=== PATIENT | male | born 1970 | race Caucasian/White ===

== ENCOUNTER 2017-04-16 11:49 | Emergency (ER) | payer BC ==
[2017-04-16 12:05] VITALS: O2SAT 98
--- NOTE | 2017-04-16 12:16 | ERPHSYRPT ---
- History of Present Illness Time Seen by Provider: 04/16/17 12:11 Source: patient Exam Limitations: no limitations Patient Subjective Stated Complaint: states hit a wall with his right fist after being frustrated because he had to put his dog down today. Triage Nursing Assessment: right hand swollen, red, tender. is able to move fingers but is tender Physician History: The patient is a 46-year-old right-handed male who was upset and frustrated after his elderly dog this morning, striking a wall with his right fist, and causing pain to his fist. He has mild swelling and pain in the fist. Occurred: just prior to arrival Method of Injury: direct blow Quality: constant, sharpness Severity of Pain-Max: moderate Severity of Pain-Current: moderate Extremities Pain Location: hand: right Modifying Factors: Improves With: nothing Associated Symptoms: none Allergies/Adverse Reactions: No Known Drug Allergies Allergy (Unverified 04/16/17 12:05) Home Medications: No Reportable Medications [No Reported Medications] 04/16/17 [History] Hx Tetanus, Diphtheria Vaccination/Date Given: No Hx Influenza Vaccination/Date Given: No Hx Pneumococcal Vaccination/Date Given: No Immunizations Up to Date: No - Review of Systems Constitutional: No Fever, No Chills Eyes: No Symptoms Ears, Nose, & Throat: No Symptoms Respiratory: No Cough, No Dyspnea Cardiac: No Chest Pain, No Edema, No Syncope Abdominal/Gastrointestinal: No Abdominal Pain, No Nausea, No Vomiting, No Diarrhea Genitourinary Symptoms: No Dysuria Musculoskeletal: Injury Skin: No Rash Neurological: No Dizziness, No Focal Weakness, No Sensory Changes Psychological: No Symptoms Endocrine: No Symptoms Hematologic/Lymphatic: No Symptoms Immunological/Allergic: No Symptoms All Other Systems: Reviewed and Negative - Past Medical History Pertinent Past Medical History: Yes GI Medical History: Crohns Disease - Past Surgical History Past Surgical History: Yes Gastrointestinal: Colon Resection Musculoskeletal: Orthopedic Surgery Other Surgical History: left rotater cuff - Social History Smoking Status: Never smoker Exposure to second hand smoke: No Drug Use: none Patient Lives Alone: No - Nursing Vital Signs Nursing Vital Signs: Initial Vital Signs Temperature 98.6 F 04/16/17 11:54 Pulse Rate 118 H 04/16/17 11:54 Respiratory Rate 16 04/16/17 11:54 Blood Pressure 151/102 04/16/17 11:54 O2 Sat by Pulse Oximetry 98 04/16/17 11:54 Pain Scale Pain Intensity 8 - Physical Exam General Appearance: alert Eyes, Ears, Nose, Throat Exam: moist mucous membranes Neck Exam: non-tender, supple Cardiovascular/Respiratory Exam: chest non-tender, normal breath sounds, regular rate/rhythm, no respiratory distress Abdominal Exam: non-tender, No guarding Back Exam: normal inspection, No vertebral tenderness Shoulder Exam: normal inspection Elbow/Forearm Exam: normal inspection Wrist Exam: normal inspection Hand Exam: ecchymosis, soft tissue tenderness, swelling Neuro/Tendon Exam: normal sensation, normal motor functions Mental Status Exam: alert Skin Exam: normal color, warm, dry SpO2 Interpretation: normal SpO2: 98 Oxygen Delivery: Room Air - Radiology Exams Right Hand X-ray Interpretation: Interpreted by me, Negative, No Fracture Ordered Tests: Active Orders 24 hr Category Date Time Status HAND (MINIMUM 3 VIEWS) Stat Exams 04/16/17 12:18 Taken Medication Summary Discontinued Medications Generic Name Dose Route Start Last Admin Trade Name Lonnieq PRN Reason Stop Dose Admin Ketorolac Tromethamine 60 mg 04/16/17 12:18 04/16/17 12:46 Toradol 30 Mg Injection IM 04/16/17 12:19 60 mg STAT ONE Administration Ketorolac Tromethamine Confirm 04/16/17 12:44 Toradol 30 Mg Injection Administered 04/16/17 12:45 Dose 60 mg .ROUTE .STK-MED ONE - Departure Time of Disposition: 12:58 Departure Disposition: Home Clinical Impression: Contusion of right hand Condition: Stable Critical Care Time: No Referrals: KARLI GUERIN [Primary Care Provider] - Additional Instructions: You have a contusion of your right hand. There are no broken bones. You were given Toradol 60 mg by IM in the ER. Continue to take Tylenol and ibuprofen as needed. Apply ice for 10-15 minutes to the hand 3 times a day for 2 days. Follow-up as needed.
[2017-04-16] MEDS ORDERED: TORAdol 30 mg Injection IM ONE (12:18)
[2017-04-16] MEDS ORDERED: TORAdol 30 mg Injection ONE (12:44)
[2017-04-16 12:48] VITALS: BP 146/98; PULSE 110
--- NOTE | 2017-04-16 20:57 | XRAY ---
Indication: Pain following injury. Comparison: None 3 views of the right hand demonstrate mild posterior MCP soft tissue swelling. No other bony, articular, or soft tissue abnormalities.
== END 2017-04-16 13:04 | disposition home or self-care (01) ==
LOC: ED 11:49
DX: S60.221A Contusion of right hand, initial encounter (principal); W22.8XXA Striking against or struck by other objects, initial encounter
CPT/HCPCS: 73130; 96372; 99283; 99284; J1885

== ENCOUNTER 2018-07-13 07:27 | Emergency (ER) | payer BC ==
[2018-07-13] MEDS ORDERED: Sodium Chloride 0.9% 1000 ML 1,000 ML ONE ×2 (07:51→09:56)
--- NOTE | 2018-07-13 08:00 | ERPHSYRPT ---
- History of Present Illness Time Seen by Provider: 07/13/18 07:45 Source: patient Exam Limitations: no limitations Patient Subjective Stated Complaint: Woke and and was dizzy, N&V, Triage Nursing Assessment: Pt walked into the ER with an unstable gait, dizzy, tachycardic, headache, PERRL, recently diagnosed diabetic, no difficulties with strength, pulses normal Physician History: 47 y/o white male newly dx with diabetes. began metformin 2 weeks ago. bs this am 386. sx of dizziness and n/v. denies cp, abd pain. Timing/Duration: today Severity: mild Character of Deficits: other (dizziness, n/v) Deficits: no difficulties Baseline/Normal Cognition: alert oriented x 3 Current Cognition: alert oriented x 3 Baseline Gait: walks w/o assistance Associated Symptoms: nausea, vomiting, weakness, No slurred speech, No chest pain, No headache Allergies/Adverse Reactions: No Known Drug Allergies Allergy (Verified 07/13/18 07:41) Home Medications: Magnesium 250 mg PO DAILY 07/13/18 [History] Metformin HCl 500 mg [Glucophage 500 MG] 500 mg PO BID 07/13/18 [History] Hx Tetanus, Diphtheria Vaccination/Date Given: No Hx Influenza Vaccination/Date Given: No Hx Pneumococcal Vaccination/Date Given: No - Review of Systems Constitutional: Weakness Eyes: No Symptoms Ears, Nose, & Throat: No Symptoms Respiratory: No Symptoms Cardiac: No Symptoms Abdominal/Gastrointestinal: Nausea, Vomiting Genitourinary Symptoms: No Symptoms Musculoskeletal: No Symptoms Skin: No Symptoms Neurological: Dizziness Psychological: No Symptoms Endocrine: No Symptoms Hematologic/Lymphatic: No Symptoms Immunological/Allergic: No Symptoms All Other Systems: Reviewed and Negative - Past Medical History Pertinent Past Medical History: Yes Neurological History: No Pertinent History ENT History: No Pertinent History Cardiac History: No Pertinent History Respiratory History: No Pertinent History Endocrine Medical History: Diabetes Type II Musculoskeletal History: No Pertinent History GI Medical History: Crohns Disease History: No Pertinent History Psycho-Social History: No Pertinent History Male Reproductive Disorders: No Pertinent History - Past Surgical History Past Surgical History: Yes Neuro Surgical History: No Pertinent History Cardiac: No Pertinent History Respiratory: No Pertinent History Gastrointestinal: Colon Resection Genitourinary: No Pertinent History Musculoskeletal: Orthopedic Surgery Male Surgical History: No Pertinent History Other Surgical History: left rotater cuff - Social History Smoking Status: Never smoker Exposure to second hand smoke: No Drug Use: none Patient Lives Alone: Yes - Nursing Vital Signs Nursing Vital Signs: Initial Vital Signs Temperature 98.4 F 07/13/18 07:31 Pulse Rate 115 H 07/13/18 07:31 Blood Pressure 135/89 07/13/18 07:31 O2 Sat by Pulse Oximetry 100 07/13/18 07:31 Pain Scale Pain Intensity 0 - Samuel Coma Scale Best Eye Response ([place]): (4) open spontaneously Best Verbal Response ([place]): (5) oriented Best Motor Response ([place]): (6) obeys commands [place] Total: 15 - Physical Exam General Appearance: alert, anxiety Ears, Nose, Throat Exam: normal ENT inspection, moist mucous membranes Neck Exam: normal inspection, non-tender, supple, full range of motion Respiratory: normal breath sounds, lungs clear, airway intact, No chest tenderness, No respiratory distress, No accessory muscle use, No rhonchi, No wheezing, No stridor Cardiovascular: regular rate/rhythm, normal heart sounds, normal peripheral pulses Gastrointestinal: soft, normal bowel sounds, No tenderness, No guarding Rectal Exam: not done Back Exam: normal inspection, normal range of motion, No CVA tenderness, No vertebral tenderness Extremity Exam: normal inspection, normal range of motion, pelvis stable Mental Status: alert, oriented x 3, cooperative operations team leader Exam: normal hearing, normal speech, PERRL Coordination/Gait: normal finger to nose, normal gait, normal cerebellar function Motor/Sensory: no motor deficit, no sensory deficit, no pronator drift Skin Exam: normal color, warm, dry SpO2 Interpretation: normal SpO2: 100 O2 Delivery: Room Air - Course Nursing assessment & vital signs reviewed: Yes EKG Interpreted by Me: RATE ([id number]), Sinus Rhythm, Sinus Tach, NORMAL AXIS, NORMAL INTERVALS, NORMAL QRS, Other (no comparison ekg) Ordered Tests: Active Orders 24 hr Category Date Time Status Inspector Electromechanical STAT Care 07/13/18 08:03 Active EKG-ER Only STAT Care 07/13/18 08:02 Active IV Insertion STAT Care 07/13/18 08:02 Active Orthostatic Vital Signs STAT Care 07/13/18 08:05 Active Pulse Oximetry (ED) STAT Care 07/13/18 08:02 Active HEAD WITHOUT CONTRAST [CT] Stat Exams 07/13/18 08:04 Completed CBC W DIFF Stat Lab 07/13/18 08:00 Completed CMP Stat Lab 07/13/18 08:00 Completed UA W/RFX UR CULTURE Stat Lab 07/13/18 09:30 Completed Medication Summary Discontinued Medications Generic Name Dose Route Start Last Admin Trade Name Joselin PRN Reason Stop Dose Admin Sodium Chloride Confirm 07/13/18 07:51 Sodium Chloride 0.9% 1000 Ml Administered 07/13/18 07:52 Dose 1,000 mls @ ud .ROUTE .STK-MED ONE Sodium Chloride 1,000 mls @ 999 mls/hr 07/13/18 08:02 07/13/18 09:22 Sodium Chloride 0.9% 1000 Ml IV 07/13/18 09:02 Infused .Q1H1M STA Infusion Sodium Chloride 1,000 mls @ 999 mls/hr 07/13/18 08:07 07/13/18 11:06 Sodium Chloride 0.9% 1000 Ml IV 07/13/18 09:07 Infused .Q1H1M STA Infusion Sodium Chloride Confirm 07/13/18 09:56 Sodium Chloride 0.9% 1000 Ml Administered 07/13/18 09:57 Dose 1,000 mls @ ud .ROUTE .STK-MED ONE Insulin Human Regular 5 unit 07/13/18 08:02 07/13/18 08:14 Novolin R IV 07/13/18 08:03 5 unit STAT ONE Administration Insulin Human Regular Confirm 07/13/18 08:11 Novolin R Administered 07/13/18 08:12 Dose 5 unit .ROUTE .STK-MED ONE Ondansetron HCl 4 mg 07/13/18 08:02 07/13/18 08:15 Zofran 4 Mg/2 Ml Vial IV 07/13/18 08:03 4 mg STAT ONE Administration Ondansetron HCl Confirm 07/13/18 08:10 Zofran 4 Mg/2 Ml Vial Administered 07/13/18 08:11 Dose 4 mg .ROUTE .STK-MED ONE Lab/Rad Data: Laboratory Result Diagrams 07/13/18 08:00 07/13/18 08:00 Laboratory Results 07/13/18 07/13/18 07/13/18 Range/Units 09:30 08:00 08:00 WBC 10.2 (4.0-10.5) K/mm3 RBC 5.19 (4.1-5.6) M/mm3 Hgb 15.7 (12.5-18.0) gm/dl Hct 45.4 (42-50) % MCV 87.5 (78-100) fl MCH 30.3 (26-32) pg MCHC 34.6 (32-36) g/dl RDW 12.2 (11.5-14.0) % Plt Count 301 (150-450) K/mm3 MPV 11.4 H (6-9.5) fl Gran % 66.8 H (36.0-66.0) % Eos # (Auto) 0.21 (0-0.5) Absolute Lymphs (auto) 2.43 (1.0-4.6) Absolute Monos (auto) 0.71 (0.0-1.3) Lymphocytes % 23.8 L (24.0-44.0) % Monocytes % 6.9 (0.0-12.0) % Eosinophils % 2.1 (0.00-5.0) % Basophils % 0.4 (0.0-0.4) % Absolute Granulocytes 6.84 (1.4-6.9) Basophils # 0.04 (0-0.4) Sodium 136 L (137-145) mmol/L Potassium 4.4 (3.5-5.1) mmol/L Chloride 94 L (98-107) mmol/L Carbon Dioxide 27 (22-30) mmol/L Anion Gap 20.0 H (5-15) MEQ/L BUN 22 H (9-20) mg/dL Creatinine 0.83 (0.66-1.25) mg/dL Estimated GFR > 60.0 ML/MIN Glucose 379 H (74-106) mg/dL Calcium 10.0 (8.4-10.2) mg/dL Total Bilirubin 0.80 (0.2-1.3) mg/dL AST 30 (17-59) U/L ALT 33 (0-50) U/L Alkaline Phosphatase 152 H (38-126) U/L Serum Total Protein 8.3 H (6.3-8.2) g/dL Albumin 4.8 (3.5-5.0) g/dL Urine Color YELLOW (YELLOW) Urine Appearance CLEAR (CLEAR) Urine pH 5.0 (5-6) Ur Specific [place] 1.035 (1.005-1.025) Urine Protein NEGATIVE (Negative) Urine Ketones TRACE (NEGATIVE) Urine Blood NEGATIVE (0-5) Derek/ul Urine Nitrite NEGATIVE (NEGATIVE) Urine Bilirubin NEGATIVE (NEGATIVE) Urine Urobilinogen NEGATIVE (0-1) mg/dL Ur Leukocyte Esterase NEGATIVE (NEGATIVE) Urine WBC (Auto) NONE (0-5) /HPF Urine RBC (Auto) NONE (0-2) /HPF U Epithel Cells (Auto) NONE (FEW) /HPF Urine Bacteria (Auto) NONE (NEGATIVE) /HPF Urine Mucus (Auto) SLIGHT (NEGATIVE) /HPF Urine Culture Reflexed NO (NO) Urine Glucose >=500 (NEGATIVE) mg/dL - Progress Progress: improved, re-examined Progress Note: 07/13/18 09:03 pt states he is feeling better. ct head-no acute process; left sphenoid sinus soft tissue mass 07/13/18 11:12 feeling much better. bs 229 Counseled pt/family regarding: lab results, diagnosis, need for follow-up, rad results - Departure Departure Disposition: Home Clinical Impression: Hyperglycemia, Mild dehydration, Mass of left sphenoid sinus Condition: Stable Critical Care Time: No Referrals: KARLI GUERIN [ACTIVE STAFF] - Additional Instructions: drink plenty of fluids. monitor your blood glucose as directed. follow up with primary care physician regarding sphenoid sinus mass.
[2018-07-13] MEDS: Sodium Chloride 0.9% 1000 ML 1,000 ML IV STA ×2 (08:08→09:59)
[2018-07-13] MEDS ORDERED: Zofran 4 MG/2 ML VIAL ONE (08:10)
[2018-07-13] MEDS ORDERED: NovoLIN R ONE (08:11)
[2018-07-13] MEDS: NovoLIN R IV ONE (08:14)
[2018-07-13] MEDS: Zofran 4 MG/2 ML VIAL IV ONE (08:15)
[2018-07-13 08:33] LABS: BASOPHIL % 0.4 % (0.0-0.4); Basophil (Absolute #) 0.04 (0-0.4); Eosinophil % 2.1 % (0.00-5.0); Eosinophil (Absolute #) 0.21 (0-0.5); Granulocyte Absolute (ANC) 6.84 (1.4-6.9); Granulocytes % 66.8 % (36.0-66.0); Hematocrit 45.4 % (42-50); Hemoglobin 15.7 gm/dl (12.5-18.0); Lymphocyte (Absolute #) 2.43 (1.0-4.6); Lymphocytes % 23.8 % (24.0-44.0); Mean Cell Volume 87.5 fl (78-100); Mean Corpuscular Hemoglobin 30.3 pg (26-32); Mean Corpuscular Hgb Concent. 34.6 g/dl (32-36); Mean Platelet Volume 11.4 fl (6-9.5); Monocyte (Absolute #) 0.71 (0.0-1.3); Monocytes % 6.9 % (0.0-12.0); Platelet Count 301 K/mm3 (150-450); Red Blood Count 5.19 M/mm3 (4.1-5.6); Red Cell Distribution Width 12.2 % (11.5-14.0); White Blood Count 10.2 K/mm3 (4.0-10.5)
[2018-07-13 08:38] LABS: ALBUMIN 4.8 g/dL (3.5-5.0); ALKALINE PHOSPHATASE 152 U/L (38-126); BLOOD UREA NITROGEN 22 mg/dL (9-20); CHLORIDE 94 mmol/L (98-107); Carbon Dioxide 27 mmol/L (22-30); Creatinine 1 0.83 mg/dL (0.66-1.25); Glucose 379 mg/dL (74-106); Potassium 4.4 mmol/L (3.5-5.1); SGOT/AST 30 U/L (17-59); SGPT/ALT 33 U/L (0-50); SODIUM 136 mmol/L (137-145); Total Protein 8.3 g/dL (6.3-8.2)
--- NOTE | 2018-07-13 08:54 | XRAY ---
Indication: Dizziness following fall. Multiple contiguous axial images obtained through the head without contrast. Comparison: None Physiologic bilateral basal ganglia calcifications. No acute intracranial hemorrhage, abnormal extra-axial fluid collection, or mass effect. Fourth ventricle is midline without hydrocephalus. Jackson-white matter differentiation preserved. Bony calvarium intact. There is noncalcified soft tissue mass occupying the left sphenoid sinus with expansion measuring at least 2.7 x 2.4 x 1.9 cm. Partial differential includes polyp, retention cyst, mucocele, and paranasal sinus tumors. There is further extension and erosion of the clivus which would also include chordoma in the differential. Pituitary gland/sella turcica are unremarkable. Remaining paranasal sinuses and mastoid air cells are clear. Impression: 1. Left sphenoid sinus noncalcified soft tissue mass with expansion as detailed. Partial differential offered above. 2. Remaining CT head without contrast exam is negative. CT DI 69.79
[2018-07-13 09:42] LABS: Appearance CLEAR (CLEAR); Bilirubin NEGATIVE (NEGATIVE); Blood NEGATIVE Ery/ul (0-5); Glucose >=500 mg/dL (NEGATIVE); Ketones TRACE (NEGATIVE); Leukocyte Esterase NEGATIVE (NEGATIVE); Mucus SLIGHT /HPF (NEGATIVE); Nitrite NEGATIVE (NEGATIVE); Protein,Urine Dip NEGATIVE (Negative); Specific Gravity 1.035 (1.005-1.025); Urobilinogen NEGATIVE mg/dL (0-1)
[2018-07-13 11:08] VITALS: BP 112/74; PULSE 95
[2018-07-13 11:13] VITALS: O2SAT 100
== END 2018-07-13 11:17 | disposition home or self-care (01) ==
LOC: ED 07:27
DX: E11.65 Type 2 diabetes mellitus with hyperglycemia (principal); Z79.4 Long term (current) use of insulin; E86.0 Dehydration; J34.9 Unspecified disorder of nose and nasal sinuses
CPT/HCPCS: 36000; 36415; 70450; 80053; 81001; 82962; 85025; 93005; 93041; 96360; 96361; 96372; 96374; 99285; J2405; A9270-GY

== ENCOUNTER 2020-02-10 10:10 | Emergency (ER) | payer BC ==
[2020-02-10] MEDS ORDERED: Sodium Chloride 0.9% 1000 ML 1,000 ML IV STA (10:52)
--- NOTE | 2020-02-10 11:03 | ERPHSYRPT ---
- History of Present Illness Time Seen by Provider: 02/10/20 10:30 Historian: patient Exam Limitations: no limitations Patient Subjective Stated Complaint: pt here for vomiting and loose stools for a week now, he states he aslo has an abcess to back of left shoulder since 01/31/20 and is on antibotics for it, [facility] care gave him zofran concerned vomiting was from antibotics Triage Nursing Assessment: pt alert, resp easy, skikn w/d/p, abd soft, face mask in place,has abcess with bandaid palced that has some drainage Physician History: Patient is a 49-year-old male presents to our ED with complaints of periumbilical pain. Patient also complains of nausea vomiting and loose stools. Patient is currently on antibiotics for a back abscess. Patient went to [facility] prior to his arrival to our ED. Patient was told that the symptoms may be due to the antibiotics. Patient was given Zofran and sent to our ED for further evaluation. Periumbilical pain described as ache that is localized. No radiation. Pain is constant. No specific worsening or improving factors. No associated trauma. No fever. Emesis is nonbloody nonbilious. Patient voices no other complaints or concerns at this time. Timing/Duration: day(s) (3 days.) Activities at Onset: none Quality: aching Abdominal Pain Onset Location: periumbilical Pain Radiation: no radiation Severity of Pain-Max: moderate Severity of Pain-Current: mild Modifying Factors: Improves With: nothing Associated Symptoms: diarrhea, nausea, vomiting, No chest pain, No testicular pain Previous symptoms: no prior history Allergies/Adverse Reactions: No Known Drug Allergies Allergy (Verified 02/10/20 10:29) Home Medications: Magnesium 250 mg PO DAILY 07/13/18 [History] Metformin HCl 500 mg [Glucophage 500 MG] 500 mg PO BID 07/13/18 [History] Clindamycin HCl 600 mg BID 02/10/20 [History] Lisinopril 20 mg [Zestril 20 MG] 20 mg DAILY 02/10/20 [History] Hx Tetanus, Diphtheria Vaccination/Date Given: No Hx Influenza Vaccination/Date Given: Yes Hx Pneumococcal Vaccination/Date Given: Yes Immunizations Up to Date: Yes Travel Risk - International Travel Have you traveled outside of the country in past 3 weeks: No - Coronavirus Screening Are you exhibiting any of the following symptoms?: Yes Symptoms: Vomiting/Diarrhea, Headaches/Body Aches/Fatigue Close contact with a COVID-19 positive Pt in past 14-21 Days: No - Review of Systems Constitutional: No Symptoms, No Fever, No Chills Eyes: No Symptoms Ears, Nose, & Throat: No Symptoms Respiratory: No Symptoms, No Cough, No Dyspnea Cardiac: No Symptoms, No Chest Pain, No Edema, No Syncope Abdominal/Gastrointestinal: No Symptoms, No Abdominal Pain, No Nausea, No Vomiting, No Diarrhea Genitourinary Symptoms: No Symptoms, No Dysuria Musculoskeletal: No Symptoms, No Back Pain, No Neck Pain Skin: No Symptoms, No Rash Neurological: No Symptoms, No Dizziness, No Focal Weakness, No Sensory Changes Psychological: No Symptoms Endocrine: No Symptoms Hematologic/Lymphatic: No Symptoms Immunological/Allergic: No Symptoms All Other Systems: Reviewed and Negative - Past Medical History Pertinent Past Medical History: Yes Neurological History: No Pertinent History ENT History: No Pertinent History Cardiac History: No Pertinent History Respiratory History: No Pertinent History Endocrine Medical History: Diabetes Type II Musculoskeletal History: No Pertinent History GI Medical History: Crohns Disease History: No Pertinent History Psycho-Social History: No Pertinent History Male Reproductive Disorders: No Pertinent History - Past Surgical History Past Surgical History: Yes Neuro Surgical History: No Pertinent History Cardiac: No Pertinent History Respiratory: No Pertinent History Gastrointestinal: Appendectomy, Cholecystectomy, Colon Resection, Hernia Repair Genitourinary: No Pertinent History Musculoskeletal: Orthopedic Surgery Male Surgical History: No Pertinent History Other Surgical History: left rotater cuff,right leg - Social History Smoking Status: Never smoker Exposure to second hand smoke: No Drug Use: none Patient Lives Alone: Yes - Nursing Vital Signs Nursing Vital Signs: Initial Vital Signs Temperature 96.9 F 02/10/20 10:20 Pulse Rate 90 02/10/20 10:20 Respiratory Rate 16 02/10/20 10:20 Blood Pressure 143/85 02/10/20 10:20 O2 Sat by Pulse Oximetry 99 02/10/20 10:20 Pain Scale Pain Intensity 0 - Physical Exam General Appearance: no apparent distress, alert Eye Exam: PERRL/EOMI, eyes nml inspection Ears, Nose, Throat Exam: normal ENT inspection, pharynx normal, moist mucous membranes Neck Exam: normal inspection, non-tender, supple, full range of motion Respiratory Exam: normal breath sounds, lungs clear, No respiratory distress Cardiovascular Exam: regular rate/rhythm, normal heart sounds Gastrointestinal/Abdomen Exam: soft, other (Periumbilical tenderness to palpation. Overlying soft tissue intact. No signs of trauma.), No tenderness, No mass Back Exam: normal inspection, normal range of motion, No CVA tenderness, No vertebral tenderness Extremity Exam: normal inspection, normal range of motion, pelvis stable Neurologic Exam: alert, oriented x 3, cooperative, normal mood/affect, nml cerebellar function, sensation nml, No motor deficits Skin Exam: normal color, warm, dry Lymphatic Exam: No adenopathy SpO2 Interpretation: normal SpO2: 99 O2 Delivery: Room Air - Course Nursing assessment & vital signs reviewed: Yes - CT Exams Abdomen/Pelvis CT Interpretation: Tele-radiologist Report (Right renal cysts remaining CT abdomen pelvis with contrast is negative) Ordered Tests: Active Orders 24 hr Category Date Time Status IV Insertion STAT Care 02/10/20 10:52 Active ABDOMEN AND PELVIS W CONTRAST [CT] Stat Exams 02/10/20 10:52 Completed CBC W DIFF Stat Lab 02/10/20 11:16 Completed CMP Stat Lab 02/10/20 11:16 Completed LIPASE Stat Lab 02/10/20 11:16 Completed TROPONIN Q3H Lab 02/10/20 11:16 Completed TROPONIN Q3H Lab 02/10/20 14:00 Ordered TROPONIN Q3H Lab 02/10/20 17:00 Ordered TROPONIN Q3H Lab 02/10/20 20:00 Ordered TROPONIN Q3H Lab 02/10/20 23:00 Ordered UA W/RFX UR CULTURE Stat Lab 02/10/20 10:52 Ordered Medication Summary Discontinued Medications Generic Name Dose Route Start Last Admin Trade Name Freq PRN Reason Stop Dose Admin Sodium Chloride 1,000 mls @ 999 mls/hr 02/10/20 10:52 02/10/20 12:24 Sodium Chloride 0.9% 1000 Ml IV 02/10/20 11:52 Infused .Q1H1M STA Infusion Sodium Chloride Confirm 02/10/20 11:08 Sodium Chloride 0.9% 1000 Ml Administered 02/10/20 11:09 Dose 1,000 mls @ ud .ROUTE .STK-MED ONE Morphine Sulfate 4 mg 02/10/20 11:14 02/10/20 11:35 Morphine Sulfate 4 Mg Inj IV 02/10/20 11:15 4 mg STAT ONE Administration Morphine Sulfate Confirm 02/10/20 11:34 Morphine Sulfate 4 Mg Inj Administered 02/10/20 11:35 Dose 4 mg .ROUTE .STK-MED ONE Lab/Rad Data: Laboratory Result Diagrams 02/10/20 11:16 02/10/20 11:16 Laboratory Results 02/10/20 02/10/20 02/10/20 Range/Units 11:16 11:16 11:16 WBC 14.5 H (4.0-10.5) K/mm3 RBC 4.30 (4.1-5.6) M/mm3 Hgb 12.8 (12.5-18.0) gm/dl Hct 38.4 L (42-50) % MCV 89.3 (78-100) fl MCH 29.8 (26-32) pg MCHC 33.3 (32-36) g/dl RDW 12.3 (11.5-14.0) % Plt Count 413 (150-450) K/mm3 MPV 10.3 (7.5-11.0) fl Gran % 76.7 H (36.0-66.0) % Eos # (Auto) 0.27 (0-0.5) Absolute Lymphs (auto) 2.40 (1.0-4.6) Absolute Monos (auto) 0.66 (0.0-1.3) Lymphocytes % 16.6 L (24.0-44.0) % Monocytes % 4.6 (0.0-12.0) % Eosinophils % 1.9 (0.00-5.0) % Basophils % 0.2 (0.0-0.4) % Absolute Granulocytes 11.12 H (1.4-6.9) Basophils # 0.03 (0-0.4) Sodium 130 L (137-145) mmol/L Potassium 5.2 H (3.5-5.1) mmol/L Chloride 97 L (98-107) mmol/L Carbon Dioxide 22 (22-30) mmol/L Anion Gap 15.2 H (5-15) MEQ/L BUN 57 H (9-20) mg/dL Creatinine 2.45 H (0.66-1.25) mg/dL Estimated GFR 29.9 ML/MIN Glucose 291 H (74-106) mg/dL Calcium 9.4 (8.4-10.2) mg/dL Total Bilirubin 0.20 (0.2-1.3) mg/dL AST 14 L (17-59) U/L ALT 9 (0-50) U/L Alkaline Phosphatase 107 (38-126) U/L Troponin I < 0.012 (0.000-0.034) ng/mL Serum Total Protein 7.4 (6.3-8.2) g/dL Albumin 4.2 (3.5-5.0) g/dL Lipase 77 (23-300) U/L - Progress Progress: improved Progress Note: 02/10/20 13:12 Patient reassessed. He feels well. Nausea resolved. Patient tolerated p.o. CT abdomen pelvis negative for acute pathology. IV fluids administered. IV fluid addressed the acute renal injury the dehydration and hyponatremia. Fluid also address the hyperglycemia. Patient requesting a Covid test. Covid test ordered. Patient given a referral to Dr. Willson. Patient agrees to follow-up with Dr. Willson within 48 hours for reevaluation. Patient advised to continue to maintain fluid intake. Patient should be drinking at least eight 8 ounce glasses of water per day. Patient voices no other complaints or concerns at this time. Patient states is ready for discharge. Case discussed with Dr. Willson. Dr. Willson will follow the patient as an outpatient. 02/10/20 13:17 Counseled pt/family regarding: lab results, diagnosis, need for follow-up, rad results - Departure Departure Disposition: Home Clinical Impression: Abdominal pain, Leukocytosis, Hyponatremia, Acute renal injury, Dehydration, Nausea vomiting and diarrhea, Hyperglycemia, Renal cyst, Lung granuloma Condition: Stable Critical Care Time: No Referrals: NYASIA WILLSON MD [ACTIVE STAFF] - Additional Instructions: Please follow-up with Dr. Willson within 48 hours for reevaluation. Discharge/Care Plan DEVIN MIRANDA was seen on 02/10/20 in the Emergency Room. The patient was counseled regarding Diagnosis,Lab results, Imaging studies, need for follow up and when to return to the Emergency Room. Prescriptions given: Discharge Note I have spoken with the patient and/or caregivers. I have explained the patient's condition, diagnosis and treatment plan based on the information available to me at this time. I have answered the patient's and/or caregiver's questions and addressed any concerns. The patient and/or caregivers have as good understanding of the patient's diagnosis, condition and treatment plan as can be expected at this point. The vital signs have been stable. The patient's condition is stable and appropriate for discharge from the emergency department. The patient will pursue further outpatient evaluation with the primary care physician or other designated or consulting physician as outlined in the discharge instructions. The patient and/or caregivers are agreeable to this plan of care and follow-up instructions have been explained in detail. The patient and/or caregivers have received these instruction. The patient/and or caregivers are aware that any significant change in condition or worsening of symptoms should prompt an immediate return to this or the closest emergency department or call 911.
[2020-02-10] MEDS ORDERED: Sodium Chloride 0.9% 1000 ML 1,000 ML ONE (11:08)
[2020-02-10] MEDS ORDERED: MORPHINE SULFATE 4 MG INJ IV ONE (11:14)
[2020-02-10 11:20] LABS: Absolute Neutrophil Ct (ANC) 11.12 (1.4-6.9); BASOPHIL % 0.2 % (0.0-0.4); Basophil (Absolute #) 0.03 (0-0.4); Eosinophil % 1.9 % (0.00-5.0); Eosinophil (Absolute #) 0.27 (0-0.5); Hematocrit 38.4 % (42-50); Hemoglobin 12.8 gm/dl (12.5-18.0); Lymphocytes % 16.6 % (24.0-44.0); Mean Cell Volume 89.3 fl (78-100); Mean Corpuscular Hemoglobin 29.8 pg (26-32); Mean Corpuscular Hgb Concent. 33.3 g/dl (32-36); Mean Platelet Volume 10.3 fl (7.5-11.0); Monocyte (Absolute #) 0.66 (0.0-1.3); Monocytes % 4.6 % (0.0-12.0); Neutrophil % 76.7 % (36.0-66.0); Platelet Count 413 K/mm3 (150-450); Red Cell Distribution Width 12.3 % (11.5-14.0); White Blood Count 14.5 K/mm3 (4.0-10.5)
[2020-02-10] MEDS ORDERED: MORPHINE SULFATE 4 MG INJ ONE (11:34)
[2020-02-10 11:36] LABS: ALBUMIN 4.2 g/dL (3.5-5.0); ANION GAP 15.2 MEQ/L (5-15); BILIRUBIN,TOTAL 0.2 mg/dL (0.2-1.3); Calcium 9.4 mg/dL (8.4-10.2); Creatinine 1 2.45 mg/dL (0.66-1.25); EST GLOMERULAR FILTRATION RATE 29.9 ML/MIN; Potassium 5.2 mmol/L (3.5-5.1); Total Protein 7.4 g/dL (6.3-8.2)
--- NOTE | 2020-02-10 12:00 | XRAY ---
Indication: Pain, weakness, nausea, and vomiting 10 days. Multiple contiguous axial images obtained through the abdomen and pelvis using 80 cc Isovue 370 contrast only. Comparison: None Lung bases demonstrate minimal bibasilar dependent atelectasis and tiny left posterior gutter calcified granuloma. Heart is not enlarged. Noncontrasted stomach and bowel loops appear nonobstructed. Appendectomy and cholecystectomy reported. 1.6 cm right mid and 0.6 cm right lower renal cortical cysts. No free fluid/air. Remaining liver, pancreas, spleen, adrenal glands, kidneys, ureters, and bladder appear unremarkable. Minimal distal aortic calcifications. No AAA or pathologic retroperitoneal lymphadenopathy. Osseous structures intact. Impression: 1. Right renal cysts.. 2. Remaining CT abdomen/pelvis with contrast exam is negative
[2020-02-10 12:45] VITALS: O2SAT 99
[2020-02-10 13:18] VITALS: BP 127/82; PULSE 79
[2020-02-10 15:28] LABS: Appearance CLEAR (CLEAR); Bilirubin NEGATIVE (NEGATIVE); Blood NEGATIVE Ery/ul (0-5); Glucose 50 mg/dL (NEGATIVE); Ketones NEGATIVE (NEGATIVE); Leukocyte Esterase NEGATIVE (NEGATIVE); Mucus SLIGHT /HPF (NEGATIVE); Nitrite NEGATIVE (NEGATIVE); Protein,Urine Dip NEGATIVE (Negative); Specific Gravity 1.034 (1.005-1.025); Urobilinogen NEGATIVE mg/dL (0-1)
[2020-02-10 18:10] LABS: Basophil 2 % (0.0-1.0); Eosinophil 2 % (0.00-3.0); Lymphocytes 9 % (24-44); Monocyte 7 % (0.0-12.0); Neutrophils 80 % (36.-66.); Platelet Estimate NORMAL (NORMAL); Total Cells Counted 100
== END 2020-02-10 14:04 | disposition home or self-care (01) ==
LOC: ED 10:10
DX: R10.9 Unspecified abdominal pain (principal); D72.829 Elevated white blood cell count, unspecified; E87.1 Hypo-osmolality and hyponatremia; N17.9 Acute kidney failure, unspecified; E86.0 Dehydration; R19.7 Diarrhea, unspecified; R11.2 Nausea with vomiting, unspecified; R73.9 Hyperglycemia, unspecified; N28.1 Cyst of kidney, acquired; J84.10 Pulmonary fibrosis, unspecified; Z79.899 Other long term (current) drug therapy
CPT/HCPCS: 36000; 36415; 74177; 80053; 81001; 83690; 84484; 85025; 96360; 96374; 99284; U0003; J2270

== ENCOUNTER 2020-12-09 03:24 | Emergency (ER) | payer BC, OTHER ==
[2020-12-09] MEDS ORDERED: MORPHINE SULFATE 4 MG INJ ONE (03:58)
[2020-12-09] MEDS ORDERED: MORPHINE SULFATE 4 MG INJ IM ONE (04:28)
--- NOTE | 2020-12-09 04:36 | ERPHSYRPT ---
- History of Present Illness Time Seen by Provider: 12/09/20 04:27 Source: patient Exam Limitations: no limitations Patient Subjective Stated Complaint: rt leg been hurting but was extremely bad tonight after work Triage Nursing Assessment: pt c/o rt lower leg pain. Pt had surgery 02/15/19 for it due to spiral fracture and then again 08/01/20 for hardware removal and hardware relocation. Pt c/o burning pain, sharp pain, and itching in the lower portion of the legs. Pedal pulse present and strong. Pt able to move foot and ankle and toes without difficulty. Pt ambulated in on leg but walked with a limp. Pt has hx of diabetes. Physician History: 50 years old male with history of right tibial spinal fracture in 2019 with interlocking intramedullary nail needing some revision and 2019 presented in the ER with lower leg pain for almost 1 week with progressive worsening. Patient reports sharp throbbing pain towards the end of the day making it difficult to have weightbearing. Does have routine swelling right lower extremity at end of work but the last few days pain is getting unbearable. He takes [id number] pain medication with no significant relief. Denies any fall or trauma. No difficulty movements of foot and ankle. Allergies/Adverse Reactions: No Known Drug Allergies Allergy (Verified 12/09/20 03:46) Home Medications: Metformin HCl 500 mg [Glucophage 500 MG] 500 mg PO BID 07/13/18 [History] Ergocalciferol (Vitamin D2) [Vitamin D2] 50,000 unit PO Q7D 12/09/20 [History] Methocarbamol 500 mg [Robaxin 500 MG] 750 mg PO HS 12/09/20 [History] Propranolol HCl 40 mg PO BID 12/09/20 [History] Hx Tetanus, Diphtheria Vaccination/Date Given: Yes Hx Influenza Vaccination/Date Given: No Hx Pneumococcal Vaccination/Date Given: No Immunizations Up to Date: Yes Travel Risk - International Travel Have you traveled outside of the country in past 3 weeks: No - Coronavirus Screening Close contact with a COVID-19 positive Pt in past 14-21 Days: No - Vaccine Status Have you recieved a Covid-19 vaccination: Yes [employer]: [employer] - Vaccination Dates Date of 2cond Vaccination (if applicable): 06/2020 - Review of Systems Constitutional: No Symptoms Respiratory: No Symptoms Cardiac: No Symptoms Genitourinary Symptoms: No Symptoms Musculoskeletal: Other Skin: No Symptoms Neurological: No Symptoms Psychological: No Symptoms Endocrine: No Symptoms Hematologic/Lymphatic: No Symptoms - Past Medical History Pertinent Past Medical History: Yes Neurological History: No Pertinent History ENT History: No Pertinent History Cardiac History: No Pertinent History Respiratory History: No Pertinent History Endocrine Medical History: Diabetes Type II Musculoskeletal History: Fractures GI Medical History: Crohns Disease History: No Pertinent History Psycho-Social History: No Pertinent History Male Reproductive Disorders: No Pertinent History - Past Surgical History Past Surgical History: Yes Neuro Surgical History: No Pertinent History Cardiac: No Pertinent History Respiratory: No Pertinent History Gastrointestinal: Appendectomy, Cholecystectomy, Colon Resection, Hernia Repair Genitourinary: No Pertinent History Musculoskeletal: Orthopedic Surgery Male Surgical History: No Pertinent History Other Surgical History: left rotater cuff, right leg - Social History Smoking Status: Never smoker Exposure to second hand smoke: No Drug Use: none Patient Lives Alone: No - Nursing Vital Signs Nursing Vital Signs: Initial Vital Signs Temperature 97.6 F 12/09/20 03:24 Pulse Rate 86 12/09/20 03:24 Respiratory Rate 20 12/09/20 03:24 Blood Pressure 162/95 12/09/20 03:24 O2 Sat by Pulse Oximetry 100 12/09/20 03:24 Pain Scale Pain Intensity 3 - Physical Exam General Appearance: no apparent distress, alert Neck Exam: normal inspection, supple, full range of motion Cardiovascular/Respiratory Exam: normal breath sounds, regular rate/rhythm Legs Exam: right leg: pain, soft tissue tenderness, swelling (Lower 1/3 leg), left leg: non-tender, normal inspection, normal range of motion, no evidence of injury Knees Exam: bilateral knee: non-tender, normal inspection, normal range of motion Ankle Exam: bilateral ankle: non-tender, normal inspection, normal range of motion, no evidence of injury Neuro/Tendon Exam: normal sensation, normal motor functions, normal tendon functions Mental Status Exam: alert, oriented x 3, cooperative Skin Exam: normal color SpO2 Interpretation: normal SpO2: 100 O2 Delivery: Room Air Ordered Tests: Active Orders 24 hr Category Date Time Status LOWER LEG Stat Exams 12/09/20 04:09 Taken Medication Summary Discontinued Medications Generic Name Dose Route Start Last Admin Trade Name Freq PRN Reason Stop Dose Admin Morphine Sulfate Confirm 12/09/20 03:58 Morphine Sulfate 4 Mg/Ml Injection Administered 12/09/20 03:59 Dose 4 mg .ROUTE .STK-MED ONE Morphine Sulfate 4 mg 12/09/20 04:28 12/09/20 04:00 Morphine Sulfate 4 Mg/Ml Injection IM 12/09/20 04:29 4 mg STAT ONE Administration - Progress Progress: improved Progress Note: 12/09/20 06:34 Is given symptomatic treatment for pain, feeling better. X-rays did not reveal any obvious fracture or dislodgment of nail reviewed by me, official report is pending. Official reports ruled out fracture but has have calcified Achilles tendinitis, given ankle brace. We will give him pain medications, crutches/weightbearing as tolerated and outpatient follow-up with his primary orthopedic surgeon. Recommended avoiding exertional activities Counseled pt/family regarding: diagnosis, need for follow-up, rad results - Departure Departure Disposition: Home Clinical Impression: Right leg pain Condition: Stable Critical Care Time: No Referrals: DOCTOR,NO FAMILY [Primary Care Provider] - (Your orthopedic surgeon in [place]. Call today for appointment for reevaluation.) VINNY MCDANIEL DPM [ACTIVE STAFF] - (Call today for appointment evaluation) Additional Instructions: Take pain medications as needed. Weightbearing as tolerated. Follow-up with your orthopedic surgeon for reevaluation. Return to ER for any worsening. Prescriptions: Hydrocodone/APAP 5/325 [[place] 5/325 mg] 1 each PO Q6H PRN PRN #12 tablet MDD 6 PRN Reason: Pain
[2020-12-09 07:05] VITALS: BP 148/83; PULSE 77; O2SAT 98
--- NOTE | 2020-12-09 08:50 | XRAY ---
Indication: Pain. No known injury. Comparison: None 2 view right lower leg demonstrates old tibial fracture with intact orthopedic hardware, old proximal fibular fracture, and small posterior heel spur. Proximal/distal tibia radiolucencies from old orthopedic hardware. No other bony, articular, or soft tissue abnormalities. Comment: Preliminary interpretation made by C. No critical discrepancy.
== END 2020-12-09 07:08 | disposition home or self-care (01) ==
LOC: ED 03:24
DX: M79.604 Pain in right leg (principal)
CPT/HCPCS: 73590; 96372; 99284; J2270

== ENCOUNTER 2023-03-18 00:08 | Emergency (ER) | payer BC ==
[2023-03-18] MEDS ORDERED: Norflex 60 MG/2 ML IM ONE (00:33)
[2023-03-18] MEDS ORDERED: PERCOCET TABLET 5/325MG PO ONE (00:34)
[2023-03-18 00:45] VITALS: RESP 18; TEMP 97.3
--- NOTE | 2023-03-18 00:46 | ERPHSYRPT ---
- History of Present Illness Time Seen by Provider: 03/18/23 00:25 Source: patient Physician History: The patient is a 52-year-old who presents with left-sided back pain. He had a renal biopsy done a couple of days ago. He went back to work today. The biopsy was done at another facility. He was having back pain before the biopsy was done. He states his kidneys function is 22%. He feels like the muscles are tightening. He was driving around and doing some movements and walking some mil d lifting. He felt like his back was spasming. He denies any bowel or bladder dysfunction.He denies any syncope or feeling lightheaded. Allergies/Adverse Reactions: No Known Drug Allergies Allergy (Verified 03/18/23 00:23) Home Medications: Atorvastatin Calcium 40 mg PO DAILY 03/18/23 [History] Gabapentin [Neurontin ] 300 mg PO TID 03/18/23 [History] Loratadine 10 mg [Claritin 10 mg] 10 mg PO DAILY 03/18/23 [History] Metoprolol Tartrate 50 mg [Lopressor 50 MG] 100 mg PO BID 03/18/23 [History] glipiZIDE [Glipizide] 5 mg PO DAILY 03/18/23 [History] Hx Tetanus, Diphtheria Vaccination/Date Given: Yes Hx Influenza Vaccination/Date Given: No Hx Pneumococcal Vaccination/Date Given: No Travel Risk - Vaccine Status Have you recieved a Covid-19 vaccination: Yes Clinical Pharmacologist: Moderna - Vaccination Dates Date of 2cond Vaccination (if applicable): 06/2020 - Review of Systems Constitutional: No Fever, No Chills Eyes: No Symptoms Ears, Nose, & Throat: No Symptoms Respiratory: No Cough, No Dyspnea Cardiac: No Chest Pain, No Edema, No Syncope Abdominal/Gastrointestinal: No Abdominal Pain, No Nausea, No Vomiting, No Diarrhea Genitourinary Symptoms: No Dysuria Musculoskeletal: Back Pain, No Neck Pain Skin: No Rash Neurological: No Dizziness, No Focal Weakness, No Sensory Changes Psychological: No Symptoms Endocrine: No Symptoms All Other Systems: Reviewed and Negative - Past Medical History Pertinent Past Medical History: Yes Neurological History: No Pertinent History ENT History: No Pertinent History Cardiac History: No Pertinent History Respiratory History: No Pertinent History Endocrine Medical History: Diabetes Type II Musculoskeletal History: Fractures GI Medical History: Crohns Disease History: Renal Disease Psycho-Social History: No Pertinent History Male Reproductive Disorders: No Pertinent History - Past Surgical History Past Surgical History: Yes Neuro Surgical History: No Pertinent History Cardiac: No Pertinent History Respiratory: No Pertinent History Gastrointestinal: Appendectomy, Cholecystectomy, Colon Resection, Hernia Repair Genitourinary: No Pertinent History Musculoskeletal: Orthopedic Surgery Male Surgical History: No Pertinent History Other Surgical History: left rotater cuff, right leg - Social History Smoking Status: Never smoker Exposure to second hand smoke: No Drug Use: none Patient Lives Alone: No - Nursing Vital Signs Nursing Vital Signs: Initial Vital Signs Temperature 97.3 F 03/18/23 00:22 Pulse Rate 75 03/18/23 00:22 Respiratory Rate 18 03/18/23 00:22 Blood Pressure 217/97 03/18/23 00:22 O2 Sat by Pulse Oximetry 98 03/18/23 00:22 Pain Scale Pain Intensity [Left Lower 9 Back] Pain Intensity 9 - Physical Exam General Appearance: no apparent distress, alert Eye Exam: PERRL/EOMI, eyes nml inspection Neck Exam: normal inspection, non-tender, supple, full range of motion, No menin gismus, No midline tenderness Respiratory Exam: normal breath sounds, lungs clear, No respiratory distress Cardiovascular Exam: regular rate/rhythm, normal heart sounds Gastrointestinal Exam: soft, No tenderness, No mass Back Exam: decreased range of motion, muscle spasm, other (Paraspinal left flank and lumbar thoracic paraspinal on the left side muscle tenderness and spasm. Decreased range of motion due to pain. No obvious contusion or ecchymosis. No signs of significant wound from the renal biopsy), No vertebral tenderness Extremity Exam: normal inspection, normal range of motion, No calf tenderness, No pedal edema Neurologic Exam: alert, oriented x 3, cooperative, shaper hand II-XII nml as tested, normal mood/affect, nml station & gait, sensation nml, No motor deficits Skin Exam: normal color, warm, dry, No rash SpO2 Interpretation: normal O2 Delivery: Room Air - Course Nursing assessment & vital signs reviewed: Yes Ordered Tests: Active Orders 24 hr Category Date Time Status ABDOMEN AND PELVIS W/0 CONTRAS [CT] Stat Exams 03/18/23 00:31 Completed CBC W DIFF Stat Lab 03/18/23 01:01 Completed CMP Stat Lab 03/18/23 01:01 Completed Medication Summary Discontinued Medications Generic Name Dose Route Start Last Admin Trade Name Joselin PRN Reason Stop Dose Admin Orphenadrine Citrate 60 mg 03/18/23 00:33 03/18/23 00:54 Orphenadrine Citrate 60 Mg/2 Ml Vial IM 03/18/23 00:34 60 mg STAT ONE Administration Orphenadrine Citrate Confirm 03/18/23 00:54 Orphenadrine Citrate 60 Mg/2 Ml Vial Administered 03/18/23 00:55 Dose 60 mg .ROUTE .STK-MED ONE Oxycodone/Acetaminophen 1 tab 03/18/23 00:34 03/18/23 00:55 Oxycodone Hcl/Apap 5 Mg/325 Mg Tablet PO 03/18/23 00:35 1 tab STAT ONE Administration Oxycodone/Acetaminophen Confirm 03/18/23 00:54 Oxycodone Hcl/Apap 5 Mg/325 Mg Tablet Administered 03/18/23 00:55 Dose 1 tab .ROUTE .STK-MED ONE Lab/Rad Data: Laboratory Result Diagrams 03/18/23 01:01 03/18/23 01:01 Laboratory Results 03/18/23 03/18/23 Range/Units 01:01 01:01 WBC 11.6 H (4.0-10.5) x10^3/uL RBC 3.65 L (4.1-5.6) x10^6/uL Hgb 11.1 L (12.5-18.0) g/dL Hct 33.4 L (42-50) % MCV 91.5 (78-100) fL MCH 30.4 (26-32) pg MCHC 33.2 (32-36) g/dL RDW 12.3 (11.5-14.0) % Plt Count 232 (150-450) x10^3/uL MPV 10.7 (7.5-11.0) fL Gran % 71.5 H (36.0-66.0) % Immature Gran % (Auto) 0.3 (0.00-0.4) % Nucleat RBC Rel Count 0.0 (0.00-0.1) % Eos # (Auto) 0.57 H (0-0.5) x10^3/uL Immature Gran # (Auto) 0.04 H (0.00-0.03) x10^3u/L Absolute Lymphs (auto) 1.88 (1.0-4.6) x10^3/uL Absolute Monos (auto) 0.73 (0.0-1.3) x10^3/uL Absolute Nucleated RBC 0.00 (0.00-0.01) x10^3u/L Lymphocytes % 16.2 L (24.0-44.0) % Monocytes % 6.3 (0.0-12.0) % Eosinophils % 4.9 (0.00-5.0) % Basophils % 0.8 (0.0-0.4) % Absolute Granulocytes 8.31 H (1.4-6.9) x10^3/uL Basophils # 0.09 (0-0.4) x10^3/uL Sodium 136 L (137-145) mmol/L Potassium 4.6 (3.5-5.1) mmol/L Chloride 107 (98-107) mmol/L Carbon Dioxide 18 L (22-30) mmol/L Anion Gap 14.5 (5-15) MEQ/L BUN 37 H (9-20) mg/dL Creatinine 3.52 H (0.66-1.25) mg/dL Estimated GFR 19.9 ML/MIN Glucose 340 H (74-106) mg/dL Calcium 8.4 (8.4-10.2) mg/dL Total Bilirubin 0.60 (0.2-1.3) mg/dL AST 19 (17-59) U/L ALT 16 (0-50) U/L Alkaline Phosphatase 137 H (38-126) U/L Serum Total Protein 6.6 (6.3-8.2) g/dL Albumin 3.8 (3.5-5.0) g/dL Procedures: [id number] CT/ABDOMEN AND PELVIS W/0 CONTRAS CLINICAL HISTORY: left flank pain, also kidney biopsy TECHNIQUE: CT of the abdomen and pelvis was performed with axial images as well as sagittal and coronal reconstruction images without intravenous contrast. COMPARISON: CT dated: 02/10/2020 FINDINGS: Mild left-sided pleural effusion. The liver is normal in size, morphology, and position, with no intrahepatic or extrahepatic bile duct dilation. Surgically removed gallbladder. Unremarkable appearing pancreas. No pancreatic mass or ductal dilatation is seen. Unremarkable appearing spleen. The adrenal glands are normal. The normal size of both kidneys with bilateral perirenal fatty stranding. No calculus, hydronephrosis, or masses were seen. The ureters are normal with no stones. Unremarkable abdominal aorta without specific evidence of aneurysm or dissection. IVC is normal. The visualized distal esophagus appears unremarkable. The stomach appears unremarkable. Unremarkable appearing duodenum. Small Bowel and colon are non-distended with no abnormality No free air and no ascites. No free intraperitoneal air is seen. The bladder is unremarkable with no stones. The prostate is unremarkable. Small fat-containing umbilical hernia. IMPRESSION: 1. Mild left-sided pleural effusion, New interval finding. 2. Bilateral perinephric fat stranding, New interval finding. 3. No evidence of renal, ureteric, or urinary bladder stones. 4. Small fat-containing umbilical hernia. Electronically Signed by: Benji Marte MD. (03/18/2023 01:29:21 EST) Radiologist later called to say there is no signs of appendicitis - Progress Progress Note: 03/18/23 00:44 This patient presents with back pain most consistent with Musculoskeletal. Differential diagnoses includes lumbago versus musculoskeletal spasm / strain versus sciatica. Less likely sciatica as straight leg raise test was negative. No back pain red flags on history or physical. Presentation not consistent with malignancy (lack of history of malignancy, lack of B symptoms), fracture (no trauma, no bony tenderness to palpation), cauda equina (no bowel or urinary incontinence/retention, no saddle anesthesia, no distal weakness), AAA, viscus perforation, osteomyelitis or epidural abscess (no IVDU, vertebral tenderness), renal colic, pyelonephritis (afebrile, no CVAT, no urinary symptoms). The back pain appears to be musculoskeletal however the patient had a biopsy. We will get a noncontrast CT scan because of the renal insufficiency. The patient will be given a shot of Norflex as well as Percocet. I cannot use anti- inflammatories due to history of renal insufficiency At this point does not appear to be an orthopedic emergency. We are doing imaging because of the biopsy The patient is a small pleural effusion. I do not feel this is causing his pain. This is most likely due to his renal failure. He does have a creatinine at 3.4. He was told that his GFR was 22%. The patient blood work is otherwise reassuring. The CT scan does not show any obvious hemorrhage or large fluid collection or complication from the biopsy. We cannot use IV contrast. At this point the patient be treated symptomatically. The patient is stable to follow- up with his primary care doctor and commodity management specialist. He will be instructed to return if he has any worsening symptoms. 03/18/23 01:58 03/18/23 02:06 The patient has some lab abnormalities consistent with his renal failure/insufficiency as well as type 2 diabetes. No evidence of DKA clinically. 03/18/23 02:07 Patient is doing better. - Departure Departure Disposition: Home Clinical Impression: Low back pain, Chronic renal insufficiency, stage IV (severe), Pleural effusio n, Hyperglycemia Condition: Stable Critical Care Time: No Referrals: BERTO TEAGUE [Primary Care Provider] - Follow up/PCP as directed Instructions: Low Back Pain (DC), Chronic kidney disease, Pleural Effusion (DC), High Blood Sugar, Adult ED Additional Instructions: Thank you for choosing our Emergency Department for your healthcare! Please take your medicines prescribed as directed and be assured that you follow up with the physician provided or your PCP in the next 1-2 days to assure you are improving. All medical problems cannot be reasonably diagnosed in your ED visit today. Return for any changes or concerns, including if your condition does not improve or you are unable to obtain follow-up. Some final results, including radiology reports, do not return the same day, but are available on the patient portal or can be obtained through your PCP Follow-up with your primary care doctor as well as commodity management specialist. Return if you develop shortness of breath Or fever Prescriptions: Hydrocodone/APAP 5/325 [[place] 5/325 mg] 1 each PO Q6H PRN PRN #10 tablet MDD 5 PRN Reason: Pain Orphenadrine Citrate 100 mg [Norflex 100 MG Tablet] 100 mg PO BID #10 tab
[2023-03-18] MEDS ORDERED: Norflex 60 MG/2 ML ONE (00:54)
[2023-03-18] MEDS ORDERED: PERCOCET TABLET 5/325MG ONE (00:54)
[2023-03-18 01:10] LABS: Absolute Neutrophil Ct (ANC) 8.31 x10^3/uL (1.4-6.9); BASOPHIL % 0.8 % (0.0-0.4); Basophil (Absolute #) 0.09 x10^3/uL (0-0.4); Eosinophil % 4.9 % (0.00-5.0); Eosinophil (Absolute #) 0.57 x10^3/uL (0-0.5); Hematocrit 33.4 % (42-50); Hemoglobin 11.1 g/dL (12.5-18.0); IMMATURE GRAN # 0.04 x10^3u/L (0.00-0.03); IMMATURE GRAN % 0.3 % (0.00-0.4); Lymphocyte (Absolute #) 1.88 x10^3/uL (1.0-4.6); Lymphocytes % 16.2 % (24.0-44.0); Mean Cell Volume 91.5 fL (78-100); Mean Corpuscular Hemoglobin 30.4 pg (26-32); Mean Corpuscular Hgb Concent. 33.2 g/dL (32-36); Mean Platelet Volume 10.7 fL (7.5-11.0); Monocyte (Absolute #) 0.73 x10^3/uL (0.0-1.3); Monocytes % 6.3 % (0.0-12.0); Neutrophil % 71.5 % (36.0-66.0); Platelet Count 232 x10^3/uL (150-450); Red Blood Count 3.65 x10^6/uL (4.1-5.6); Red Cell Distribution Width 12.3 % (11.5-14.0); White Blood Count 11.6 x10^3/uL (4.0-10.5)
[2023-03-18 01:15] LABS: ALBUMIN 3.8 g/dL (3.5-5.0); ANION GAP 14.5 MEQ/L (5-15); BILIRUBIN,TOTAL 0.6 mg/dL (0.2-1.3); Calcium 8.4 mg/dL (8.4-10.2); Creatinine 1 3.52 mg/dL (0.66-1.25); EST GLOMERULAR FILTRATION RATE 19.9 ML/MIN; Potassium 4.6 mmol/L (3.5-5.1); Total Protein 6.6 g/dL (6.3-8.2)
--- NOTE | 2023-03-18 01:34 | XRAY ---
CLINICAL HISTORY: left flank pain, also kidney biopsy TECHNIQUE: CT of the abdomen and pelvis was performed with axial images as well as sagittal and coronal reconstruction images without intravenous contrast. COMPARISON: CT dated: 02/10/2020 FINDINGS: Mild left-sided pleural effusion. The liver is normal in size, morphology, and position, with no intrahepatic or extrahepatic bile duct dilation. Surgically removed gallbladder. Unremarkable appearing pancreas. No pancreatic mass or ductal dilatation is seen. Unremarkable appearing spleen. The adrenal glands are normal. The normal size of both kidneys with bilateral perirenal fatty stranding. No calculus, hydronephrosis, or masses were seen. The ureters are normal with no stones. Unremarkable abdominal aorta without specific evidence of aneurysm or dissection. IVC is normal. The visualized distal esophagus appears unremarkable. The stomach appears unremarkable. Unremarkable appearing duodenum. Small Bowel and colon are non-distended with no abnormality No free air and no ascites. No free intraperitoneal air is seen. The bladder is unremarkable with no stones. The prostate is unremarkable. Small fat-containing umbilical hernia. IMPRESSION: 1. Mild left-sided pleural effusion, New interval finding. 2. Bilateral perinephric fat stranding, New interval finding. 3. No evidence of renal, ureteric, or urinary bladder stones. 4. Small fat-containing umbilical hernia. Electronically Signed by: Benji Marte MD. (03/18/2023 01:29:21 EST)
[2023-03-18 02:13] VITALS: BP 192/92; PULSE 73; O2SAT 95
== END 2023-03-18 02:28 ==
LOC: ED 00:08
DX: M54.50 Low back pain, unspecified (principal); E11.22 Type 2 diabetes mellitus with diabetic chronic kidney disease; N18.4 Chronic kidney disease, stage 4 (severe); E11.65 Type 2 diabetes mellitus with hyperglycemia; J90 Pleural effusion, not elsewhere classified; Z79.84 Long term (current) use of oral hypoglycemic drugs; Z79.899 Other long term (current) drug therapy; Z79.891 Long term (current) use of opiate analgesic
CPT/HCPCS: 36415; 74176; 80053; 85025; 96372; 99283; J2360; A9270-GY

== ENCOUNTER 2023-07-20 19:05 | Emergency (ER) | payer BC ==
--- NOTE | 2023-07-20 19:35 | ERPHSYRPT ---
- History of Present Illness Time Seen by Provider: 07/20/23 19:21 Historian: patient Exam Limitations: no limitations Patient Subjective Stated Complaint: "I got some labs drawn today and they called me and told me to come to the ER. Something was critical. I've had kidney issues and some back pain. I also have some swelling in my legs. They say my kidneys are not working". Triage Nursing Assessment: Pt presents to ER with complaints of lower right sided flank pain. States was advised to come to the ER due to critical lab values that were drawn today. Pt is unsure which lab values they were but states has had kidney issues. Rates pain 8/10 scale. States it is sharp, stabbing, and constant in nature. Denies nausea/vomiting/diarrhea. Denies difficulty urinating. Pt is alert and oriented x 3. Skin is pink, warm, and dry. 3+ bilateral pitting edema noted to lower extremities. Respirations are easy and unlabored. Physician History: 52-year-old male with history of CKD 4, diabetes mellitus, hypertension present ed in the ER with hyperkalemia of 6.9 drawn at labs earlier today by nephrology. Patient reports right flank pain off and on for quite some time but lately getting worse since yesterday, moderate to severe sharp stabbing with no significant aggravating or relieving factors. Reports associated nausea but no vomiting. No abdominal distention. No urinary complaints. Patient reports bilateral lower extremity swellings which is also getting worse lately. No chest pain palpitations or shortness of breath reported. No fever or chills reported. Allergies/Adverse Reactions: No Known Drug Allergies Allergy (Verified 07/20/23 19:22) Home Medications: Atorvastatin Calcium 40 mg PO DAILY 03/18/23 [History] Loratadine 10 mg [Claritin 10 mg] 10 mg PO DAILY 03/18/23 [History] Metoprolol Tartrate 50 mg [Lopressor 50 MG] 100 mg PO BID 03/18/23 [History] glipiZIDE [Glipizide] 5 mg PO DAILY 03/18/23 [History] Amlodipine Besylate 10 mg PO DAILY 07/20/23 [History] Cyclobenzaprine HCl 5 mg PO BID 07/20/23 [History] Pregabalin [Lyrica 75 mg Cap] 75 mg PO BID 07/20/23 [History] Sodium Bicarbonate 650 mg PO BID 07/20/23 [History] lisinopriL [Zestril] 1 tab PO DAILY 07/20/23 [History] Hx Tetanus, Diphtheria Vaccination/Date Given: Yes Hx Influenza Vaccination/Date Given: No Hx Pneumococcal Vaccination/Date Given: No Travel Risk - International Travel Have you traveled outside of the country in past 3 weeks: No - Emerging Infectious Disease Are you exhibiting symptoms associated with any current EIDs: No - Review of Systems Constitutional: No Symptoms Eyes: No Symptoms Ears, Nose, & Throat: No Symptoms Respiratory: No Symptoms Cardiac: No Symptoms Abdominal/Gastrointestinal: Abdominal Pain, Nausea Genitourinary Symptoms: Flank Pain Musculoskeletal: Back Pain Skin: Skin Lesions Neurological: No Symptoms Psychological: No Symptoms Endocrine: No Symptoms - Past Medical History Pertinent Past Medical History: Yes Neurological History: No Pertinent History ENT History: No Pertinent History Cardiac History: No Pertinent History Respiratory History: No Pertinent History Endocrine Medical History: Diabetes Type II Musculoskeletal History: Fractures GI Medical History: Crohns Disease History: Renal Disease Psycho-Social History: No Pertinent History Male Reproductive Disorders: No Pertinent History - Past Surgical History Past Surgical History: Yes Neuro Surgical History: No Pertinent History Cardiac: No Pertinent History Respiratory: No Pertinent History Gastrointestinal: Appendectomy, Cholecystectomy, Colon Resection, Hernia Repair Genitourinary: No Pertinent History Musculoskeletal: Orthopedic Surgery Male Surgical History: No Pertinent History Other Surgical History: left rotater cuff, right leg - Social History Smoking Status: Never smoker Exposure to second hand smoke: No Drug Use: none Patient Lives Alone: No - Nursing Vital Signs Nursing Vital Signs: Initial Vital Signs Pulse Rate 78 07/20/23 19:15 Respiratory Rate 18 07/20/23 19:15 Blood Pressure 154/81 07/20/23 19:15 O2 Sat by Pulse Oximetry 95 07/20/23 19:15 Pain Scale Pain Intensity 7 - Physical Exam General Appearance: no apparent distress, alert Eye Exam: PERRL/EOMI Ears, Nose, Throat Exam: normal ENT inspection, pharynx normal Neck Exam: normal inspection, supple, full range of motion Respiratory Exam: normal breath sounds, lungs clear Cardiovascular Exam: regular rate/rhythm, normal heart sounds Gastrointestinal/Abdomen Exam: soft, normal bowel sounds, tenderness (Right flank/right lower quadrant/right sacroiliac area) Back Exam: normal inspection, CVA tenderness (Right side) Extremity Exam: normal inspection, normal range of motion Neurologic Exam: alert, oriented x 3, cooperative Skin Exam: normal color SpO2 Interpretation: normal SpO2: 95 O2 Delivery: Room Air - Course EKG Interpreted by Me: RATE (73), Sinus Rhythm, NORMAL AXIS, NORMAL INTERVALS Ordered Tests: Active Orders 24 hr Category Date Time Status EKG-ER Only STAT Care 07/20/23 19:31 Active IV Insertion STAT Care 07/20/23 19:30 Active NPO (ED) STAT Care 07/20/23 19:30 Active ABDOMEN AND PELVIS W/0 CONTRAS [CT] Stat Exams 07/20/23 20:55 Taken BMP Stat Lab 07/20/23 22:00 Completed CBC W DIFF Stat Lab 07/20/23 19:40 Completed CMP Stat Lab 07/20/23 19:40 Completed CULTURE,URINE Stat Lab 07/20/23 20:39 Received LIPASE Stat Lab 07/20/23 19:40 Completed Lactic Acid Stat Lab 07/20/23 20:10 Completed UA W/RFX UR CULTURE Stat Lab 07/20/23 20:39 Completed Medication Summary Generic Name Dose Route Start Last Admin Trade Name Freq PRN Reason Stop Dose Admin Sodium Chloride 1,000 mls @ 125 mls/hr 07/20/23 19:30 07/20/23 19:58 Sodium Chloride 0.9% 1000 Ml IV 08/19/23 19:29 125 mls/hr .Q8H JHONY Administration Discontinued Medications Generic Name Dose Route Start Last Admin Trade Name Freq PRN Reason Stop Dose Admin Calcium Gluconate 1,000 mg 07/20/23 19:31 07/20/23 20:05 Calcium Gluconate 1000 Mg/10 Ml Vial IV 07/20/23 19:32 1,000 mg STAT ONE Administration Calcium Gluconate Confirm 07/20/23 19:47 Calcium Gluconate 1000 Mg/10 Ml Vial Administered 07/20/23 19:48 Dose 1,000 mg IV .STK-MED ONE Dextrose 50 ml 07/20/23 19:31 07/20/23 20:08 Dextrose 50%-Water 50 Ml Abboject IV 07/20/23 19:32 50 ml STAT ONE Administration Dextrose Confirm 07/20/23 19:51 Dextrose 50%-Water 50 Ml Abboject Administered 07/20/23 19:52 Dose 50 ml IV .STK-MED ONE Insulin Human Regular 10 unit 07/20/23 19:31 07/20/23 20:12 Insulin Regular, Human 1 Unit IV 07/20/23 19:32 10 unit STAT ONE Administration Insulin Human Regular Confirm 07/20/23 19:50 Insulin Regular, Human 1 Unit Administered 07/20/23 19:51 Dose 10 unit .ROUTE .STK-MED ONE Morphine Sulfate 4 mg 07/20/23 19:30 07/20/23 20:03 Morphine Sulfate 4 Mg/Ml Injection IV 07/20/23 19:31 4 mg STAT ONE Administration Morphine Sulfate Confirm 07/20/23 19:50 Morphine Sulfate 4 Mg/Ml Injection Administered 07/20/23 19:51 Dose 4 mg .ROUTE .STK-MED ONE Morphine Sulfate 4 mg 07/20/23 22:49 07/20/23 22:57 Morphine Sulfate 4 Mg/Ml Injection IV 07/20/23 22:50 4 mg STAT ONE Administration Morphine Sulfate Confirm 07/20/23 22:56 Morphine Sulfate 4 Mg/Ml Injection Administered 07/20/23 22:57 Dose 4 mg .ROUTE .STK-MED ONE Ondansetron HCl 4 mg 07/20/23 19:30 07/20/23 20:00 Ondansetron Hcl 4 Mg/2 Ml Vial IV 07/20/23 19:31 4 mg STAT ONE Administration Ondansetron HCl Confirm 07/20/23 19:47 Ondansetron Hcl 4 Mg/2 Ml Vial Administered 07/20/23 19:48 Dose 4 mg .ROUTE .STK-MED ONE Patiromer 8.4 gm 07/20/23 19:45 07/20/23 20:14 Patiromer Calcium Sorbitex 8.4 Gm Powd.Pack PO 07/20/23 19:46 8.4 gm STAT STA Administration Patiromer Confirm 07/20/23 20:11 Patiromer Calcium Sorbitex 8.4 Gm Powd.Pack Administered 07/20/23 20:12 Dose 8.4 gm PO .STK-MED ONE Sodium Bicarbonate 50 meq 07/20/23 19:31 07/20/23 20:06 Sodium Bicarbonate 1 Meq/Ml 50ml Syringe IV 07/20/23 19:32 50 meq STAT ONE Administration Sodium Bicarbonate Confirm 07/20/23 19:51 Sodium Bicarbonate 1 Meq/Ml 50ml Syringe Administered 07/20/23 19:52 Dose 50 meq IV .[facility] ONE Lab/Rad Data: Laboratory Result Diagrams 07/20/23 19:40 07/20/23 22:00 Laboratory Results 07/20/23 07/20/23 07/20/23 Range/Units 22:00 20:39 20:10 WBC (4.0-10.5) x10^3/uL RBC (4.1-5.6) x10^6/uL Hgb (12.5-18.0) g/dL Hct (42-50) % MCV (78-100) fL MCH (26-32) pg MCHC (32-36) g/dL RDW (11.5-14.0) % Plt Count (150-450) x10^3/uL MPV (7.5-11.0) fL Gran % (36.0-66.0) % Immature Gran % (Auto) (0.00-0.4) % Nucleat RBC Rel Count (0.00-0.1) % Eos # (Auto) (0-0.5) x10^3/uL Immature Gran # (Auto) (0.00-0.03) x10^3u/L Absolute Lymphs (auto) (1.0-4.6) x10^3/uL Absolute Monos (auto) (0.0-1.3) x10^3/uL Absolute Nucleated RBC (0.00-0.01) x10^3u/L Lymphocytes % (24.0-44.0) % Monocytes % (0.0-12.0) % Eosinophils % (0.00-5.0) % Basophils % (0.0-0.4) % Absolute Granulocytes (1.4-6.9) x10^3/uL Basophils # (0-0.4) x10^3/uL Sodium 143 (135-145) mmol/L Potassium 5.1 (3.5-5.1) mmol/L Chloride 112 H (98-107) mmol/L Carbon Dioxide 22 (22-30) mmol/L Anion Gap 13.9 (5-15) MEQ/L BUN 40 H (9-20) mg/dL Creatinine 3.95 H (0.66-1.25) mg/dL Estimated GFR 17.3 ML/MIN Glucose 78 (74-106) mg/dL Lactic Acid 1.0 (0.4-2.0) Calcium 8.6 (8.4-10.2) mg/dL Total Bilirubin (0.2-1.3) mg/dL AST (17-59) U/L ALT (0-50) U/L Alkaline Phosphatase (38-126) U/L Serum Total Protein (6.3-8.2) g/dL Albumin (3.5-5.0) g/dL Lipase (23-300) U/L Urine Color Yellow (Yellow) Urine Appearance Clear (Clear) Urine pH 7.5 (4.6-8.0) Ur Specific [place] 1.015 (1.005-1.030) Urine Protein 300 A (Negative) Urine Glucose (UA) 250 A (Negative) mg/dL Urine Ketones Negative (Negative) Urine Blood Small A (Negative) Urine Nitrite Negative (Negative) Urine Bilirubin Negative (Negative) Urine Urobilinogen 0.2 (0.2) mg/dL Ur Leukocyte Esterase Negative (Negative) U Hyaline Cast (Auto) NONE SEEN (0-2) /LPF Urine Microscopic RBC 3-5 (0-5) /HPF Urine Microscopic WBC 0-2 (0-5) /HPF Ur Epithelial Cells None Seen (None Seen) /HPF Urine Bacteria None Seen (None Seen) /HPF Urine Culture Reflexed YES (NO) 07/20/23 07/20/23 Range/Units 19:40 19:40 WBC 8.0 (4.0-10.5) x10^3/uL RBC 3.44 L (4.1-5.6) x10^6/uL Hgb 10.2 L (12.5-18.0) g/dL Hct 31.9 L (42-50) % MCV 92.7 (78-100) fL MCH 29.7 (26-32) pg MCHC 32.0 (32-36) g/dL RDW 12.5 (11.5-14.0) % Plt Count 213 (150-450) x10^3/uL MPV 10.6 (7.5-11.0) fL Gran % 65.6 (36.0-66.0) % Immature Gran % (Auto) 0.1 (0.00-0.4) % Nucleat RBC Rel Count 0.0 (0.00-0.1) % Eos # (Auto) 0.41 (0-0.5) x10^3/uL Immature Gran # (Auto) 0.01 (0.00-0.03) x10^3u/L Absolute Lymphs (auto) 1.67 (1.0-4.6) x10^3/uL Absolute Monos (auto) 0.57 (0.0-1.3) x10^3/uL Absolute Nucleated RBC 0.00 (0.00-0.01) x10^3u/L Lymphocytes % 21.0 L (24.0-44.0) % Monocytes % 7.2 (0.0-12.0) % Eosinophils % 5.2 H (0.00-5.0) % Basophils % 0.9 (0.0-0.4) % Absolute Granulocytes 5.23 (1.4-6.9) x10^3/uL Basophils # 0.07 (0-0.4) x10^3/uL Sodium 140 (135-145) mmol/L Potassium 5.9 H (3.5-5.1) mmol/L Chloride 111 H (98-107) mmol/L Carbon Dioxide 19 L (22-30) mmol/L Anion Gap 15.7 H (5-15) MEQ/L BUN 41 H (9-20) mg/dL Creatinine 4.03 H (0.66-1.25) mg/dL Estimated GFR 16.9 ML/MIN Glucose 208 H (74-106) mg/dL Lactic Acid (0.4-2.0) Calcium 8.3 L (8.4-10.2) mg/dL Total Bilirubin 0.50 (0.2-1.3) mg/dL AST 36 (17-59) U/L ALT 49 (0-50) U/L Alkaline Phosphatase 146 H (38-126) U/L Serum Total Protein 7.3 (6.3-8.2) g/dL Albumin 4.1 (3.5-5.0) g/dL Lipase 48 (23-300) U/L Urine Color (Yellow) Urine Appearance (Clear) Urine pH (4.6-8.0) Ur Specific [place] (1.005-1.030) Urine Protein (Negative) Urine Glucose (UA) (Negative) mg/dL Urine Ketones (Negative) Urine Blood (Negative) Urine Nitrite (Negative) Urine Bilirubin (Negative) Urine Urobilinogen (0.2) mg/dL Ur Leukocyte Esterase (Negative) U Hyaline Cast (Auto) (0-2) /LPF Urine Microscopic RBC (0-5) /HPF Urine Microscopic WBC (0-5) /HPF Ur Epithelial Cells (None Seen) /HPF Urine Bacteria (None Seen) /HPF Urine Culture Reflexed (NO) - Progress Progress: improved, re-examined Progress Note: 07/20/23 22:51 52-year-old is evaluated in the ER for right flank pain and elevated potassium drawn earlier for outpatient labs. Potassium was 6.9. EKG showed sinus rhythm with no acute peaked T waves and no other ischemic changes. Patient has no chest pain. No difficulty breathing. He is given symptomatic treatment for pain along with gentle hydration and medication per hyperkalemia protocol with calcium gluconate/bicarb/dextrose/insulin. CT abdomen pelvis did not show any obstructive uropathy, as bilateral perinephric stranding which is chronic. Has some element of pulmonary edema. Fluid is stopped. No other intra-abdominal pelvic findings. No UTI. I have rechecked BMP and has improvement in potassium to 5.1 and also improvement in BUN/creatinine to 3.95 which is pretty much around his baseline. He is advised to have outpatient follow-up. He is also given Veltassa here and I will give him a dose of Kayexalate 15 g to go home to take tomorrow after discussion with his nephrology.. Discussed signs symptoms of worsening needing return to ER which she seems understanding. Counseled pt/family regarding: lab results, diagnosis, need for follow-up, rad results Medical Desision Making - Diagnostic Testing Diagnostic test were ordered, analyzed, and reviewed by me: Yes Radiological Interpretation: Reviewed by me, Teleradiologist Report - Risk of complications The pt has a mod risk of morbidity or mortality based on: Need for prescription drug management - Departure Departure Disposition: Home Clinical Impression: Hyperkalemia, Right flank pain, Chronic renal insufficiency, stage IV (severe) Condition: Stable Critical Care Time: No Referrals: BERTO TEAGUE [Primary Care Provider] - Follow up with PCP 1 day AVI TINOCO [CONSULTING PHYSICIAN] - Follow up other (Call: The morning for appointment for reevaluation.) Instructions: Flank Pain, Hyperkalemia Additional Instructions: Follow-up with primary care and nephrology for reevaluation and recheck of potassium. Return to ER for worsening flank pain or if having chest pain palpitations/shortness of breath etc. Prescriptions: Sodium Polystyrene 15Gm/60 ml* [Kayexylate 15 GM/60 ML] 15 g PO AC 1 Days #15 gum
[2023-07-20 19:46] LABS: Absolute Neutrophil Ct (ANC) 5.23 x10^3/uL (1.4-6.9); BASOPHIL % 0.9 % (0.0-0.4); Basophil (Absolute #) 0.07 x10^3/uL (0-0.4); Eosinophil % 5.2 % (0.00-5.0); Eosinophil (Absolute #) 0.41 x10^3/uL (0-0.5); Hematocrit 31.9 % (42-50); Hemoglobin 10.2 g/dL (12.5-18.0); IMMATURE GRAN # 0.01 x10^3u/L (0.00-0.03); IMMATURE GRAN % 0.1 % (0.00-0.4); Lymphocyte (Absolute #) 1.67 x10^3/uL (1.0-4.6); Mean Cell Volume 92.7 fL (78-100); Mean Corpuscular Hemoglobin 29.7 pg (26-32); Mean Platelet Volume 10.6 fL (7.5-11.0); Monocyte (Absolute #) 0.57 x10^3/uL (0.0-1.3); Monocytes % 7.2 % (0.0-12.0); Neutrophil % 65.6 % (36.0-66.0); Platelet Count 213 x10^3/uL (150-450); Red Blood Count 3.44 x10^6/uL (4.1-5.6); Red Cell Distribution Width 12.5 % (11.5-14.0)
[2023-07-20] MEDS ORDERED: Calcium Gluconate 10% 1000 MG IV ONE (19:47)
[2023-07-20] MEDS ORDERED: Zofran 4 MG/2 ML VIAL ONE (19:47)
[2023-07-20] MEDS ORDERED: MORPHINE SULFATE 4 MG INJ ONE ×2 (19:50→22:56)
[2023-07-20] MEDS ORDERED: HUMULIN R ONE (19:50)
[2023-07-20] MEDS ORDERED: D50W 50 ml Abboject IV ONE (19:51)
[2023-07-20] MEDS ORDERED: Sodium Chloride 0.9% 1000 ML 1,000 ML ONE (19:51)
[2023-07-20] MEDS ORDERED: SODIUM BICARBONATE 50 MEQ/50 ML ABBOJECT IV ONE (19:51)
[2023-07-20] MEDS: Sodium Chloride 0.9% 1000 ML 1,000 ML IV SCH (19:58)
[2023-07-20] MEDS: Zofran 4 MG/2 ML VIAL IV ONE (20:00)
[2023-07-20 20:01] LABS: ALBUMIN 4.1 g/dL (3.5-5.0); ANION GAP 15.7 MEQ/L (5-15); BILIRUBIN,TOTAL 0.5 mg/dL (0.2-1.3); Calcium 8.3 mg/dL (8.4-10.2); Creatinine 1 4.03 mg/dL (0.66-1.25); EST GLOMERULAR FILTRATION RATE 16.9 ML/MIN; Potassium 5.9 mmol/L (3.5-5.1); Total Protein 7.3 g/dL (6.3-8.2)
[2023-07-20] MEDS: MORPHINE SULFATE 4 MG INJ IV ONE ×2 (20:03→22:57)
[2023-07-20] MEDS: Calcium Gluconate 10% 1000 MG IV ONE (20:05)
[2023-07-20] MEDS: SODIUM BICARBONATE 50 MEQ/50 ML ABBOJECT IV ONE (20:06)
[2023-07-20] MEDS: D50W 50 ml Abboject IV ONE (20:08)
[2023-07-20] MEDS ORDERED: VELTASSA PO ONE (20:11)
[2023-07-20] MEDS: HUMULIN R IV ONE (20:12)
[2023-07-20] MEDS: VELTASSA PO STA (20:14)
[2023-07-20 20:54] LABS: ADD URINE CULTURE? YES (NO); Appearance Clear (Clear); Bacteria None Seen /HPF (None Seen); Bilirubin Negative (Negative); Blood Small (Negative); Epithelial Cells None Seen /HPF (None Seen); Glucose, Urine 250 mg/dL (Negative); Hyaline Casts NONE SEEN /LPF (0-2); Ketones Negative (Negative); Leukocyte Esterase Negative (Negative); Nitrite Negative (Negative); Ph 7.5 (4.6-8.0); Protein,Urine Dip 300 (Negative); Specific Gravity 1.015 (1.005-1.030); Urobilinogen 0.2 mg/dL (0.2); WBC 0-2 /HPF (0-5)
[2023-07-20 22:17] LABS: ANION GAP 13.9 MEQ/L (5-15); Calcium 8.6 mg/dL (8.4-10.2); Creatinine 1 3.95 mg/dL (0.66-1.25); EST GLOMERULAR FILTRATION RATE 17.3 ML/MIN; Potassium 5.1 mmol/L (3.5-5.1)
[2023-07-20 23:31] VITALS: BP 157/109; PULSE 71; RESP 18; O2SAT 92
--- NOTE | 2023-07-21 09:12 | XRAY ---
Indication: Right flank pain. Multiple contiguous axial images obtained through the abdomen and pelvis without contrast using renal stone protocol. Comparison: March 18, 2023 Lung bases demonstrates new pulmonary edema. Worsening moderate left and small right effusions with mild compressive atelectasis. Heart not enlarged. No renal calculus or evidence for obstructive uropathy in either system. There remains grossly stable nonspecific bilateral perinephric stranding. No free fluid/air. Stomach is again distended with food/fluid. Noncontrasted stomach and bowel loops nonobstructed. Again cholecystectomy and appendectomy reported. No free fluid/air. Remaining liver, pancreas, spleen, adrenal glands, kidneys, ureters, and bladder are unremarkable for noncontrast exam. Stable minimal aortic calcifications without AAA. Osseous structures intact again with minimal degenerative changes throughout the spine. Impression: 1. Continued negative for renal calculus or evidence for obstructive uropathy. 2. New pulmonary edema with worsening bibasilar effusions. No cardiomegaly. Rule out noncardiogenic causes. 3. Again chronic findings including nonspecific bilateral perinephric stranding, arteriosclerotic disease, and degenerative spondylosis.
== END 2023-07-20 23:33 ==
LOC: ED 19:05
DX: E87.5 Hyperkalemia (principal); R10.9 Unspecified abdominal pain; I12.9 Hypertensive chronic kidney disease with stage 1 through stage 4 chronic kidney disease, or unspecified chronic kidney disease; E11.22 Type 2 diabetes mellitus with diabetic chronic kidney disease; N18.4 Chronic kidney disease, stage 4 (severe); R11.0 Nausea; Z79.84 Long term (current) use of oral hypoglycemic drugs; Z79.899 Other long term (current) drug therapy
CPT/HCPCS: 36000; 36415; 74176; 80048; 80053; 81001; 83605; 83690; 85025; 87086; 93005; 96374; 96375; 96376; 99284; J0612; J1815; J2270; J2405

== ENCOUNTER 2023-08-30 12:33 | Emergency (ER) | payer BC ==
[2023-08-30 12:55] VITALS: TEMP 97.4
[2023-08-30 13:39] LABS: Absolute Neutrophil Ct (ANC) 8.34 x10^3/uL (1.78-5.38); BASOPHIL % 0.7 % (0.2-1.2); Basophil (Absolute #) 0.08 x10^3/uL (0.01-0.08); Eosinophil % 4.6 % (0.8-7.0); Eosinophil (Absolute #) 0.54 x10^3/uL (0.04-0.54); Hematocrit 38.1 % (40.1-51.0); Hemoglobin 13.3 g/dL (13.7-17.5); IMMATURE GRAN # 0.06 x10^3u/L (0.001-0.031); IMMATURE GRAN % 0.5 % (0.001-0.429); Lymphocyte (Absolute #) 1.72 x10^3/uL (1.32-3.57); Lymphocytes % 14.8 % (21.8-53.1); Mean Corpuscular Hgb Concent. 34.9 g/dL (32.3-36.5); Mean Platelet Volume 10.4 fL (9.4-12.4); Monocyte (Absolute #) 0.91 x10^3/uL (0.30-0.82); Monocytes % 7.8 % (5.3-12.2); Neutrophil % 71.6 % (34.0-67.9); Platelet Count 308 x10^3/uL (163-337); Red Blood Count 4.59 x10^6/uL (4.63-6.08); Red Cell Distribution Width 12.2 % (11.6-14.4); White Blood Count 11.7 x10^3/uL (4.23-9.07)
[2023-08-30] MEDS ORDERED: TYLENOL EXTRA STRENGTH 500 MG ONE (13:57)
[2023-08-30] MEDS ORDERED: Sodium Chloride 0.9% 1000 ML 1,000 ML ONE (13:57)
[2023-08-30] MEDS ORDERED: Zofran 4 MG/2 ML VIAL ONE (13:57)
[2023-08-30] MEDS ORDERED: BENADRYL 50 MG/ML ONE (13:57)
[2023-08-30 13:58] LABS: ALBUMIN 4.6 g/dL (3.5-5.0); ANION GAP 17.8 MEQ/L (5-15); BILIRUBIN,TOTAL 0.6 mg/dL (0.2-1.3); Calcium 9.3 mg/dL (8.4-10.2); Creatinine 1 5.84 mg/dL (0.66-1.25); EST GLOMERULAR FILTRATION RATE 10.8 ML/MIN; Potassium 3.7 mmol/L (3.5-5.1); Total Protein 8.1 g/dL (6.3-8.2)
[2023-08-30] MEDS: Zofran 4 MG/2 ML VIAL IV ONE (13:59)
[2023-08-30] MEDS: BENADRYL 50 MG/ML IV ONE (14:01)
[2023-08-30] MEDS: TYLENOL EXTRA STRENGTH 500 MG PO STA (14:04)
[2023-08-30] MEDS: Sodium Chloride 0.9% 1000 ML 1,000 ML IV STA (14:05)
[2023-08-30] MEDS: Lidoderm Patch 5% TOP ONE (14:05)
[2023-08-30 14:22] LABS: INFLUENZA A NEGATIVE (NEGATIVE); INFLUENZA B NEGATIVE (NEGATIVE); RESPIRATORY SYNCTIAL VIRUS NEGATIVE (NEGATIVE); SARS-CoV-2 Xpert Express NEGATIVE (NEGATIVE)
[2023-08-30 14:33] LABS: Appearance Clear (Clear); Bacteria None Seen /HPF (None Seen); Bilirubin Negative (Negative); Blood Small (Negative); Epithelial Cells None Seen /HPF (None Seen); Glucose, Urine 500 mg/dL (Negative); Ketones Negative (Negative); Leukocyte Esterase Negative (Negative); Nitrite Negative (Negative); Ph 6.5 (4.6-8.0); Protein,Urine Dip >=1000 (Negative); Specific Gravity 1.015 (1.005-1.030); Urobilinogen 0.2 mg/dL (0.2); WBC 0-2 /HPF (0-5)
[2023-08-30 14:44] LABS: ADD URINE CULTURE? NO (NO)
--- NOTE | 2023-08-30 14:52 | XRAY ---
Indication: Left flank pain. Multiple contiguous axial images obtained through the abdomen and pelvis without contrast using renal stone protocol. Comparison: July 20, 2023 Lung bases again demonstrates small left effusion but much less than before. Minimal bilateral dependent atelectasis. Heart not enlarged. No renal calculus or evidence for obstructive uropathy in either system. Grossly stable nonspecific bilateral perinephric stranding. Noncontrasted stomach and bowel loops nonobstructed. Again cholecystectomy and appendectomy. New left midabdomen percutaneous catheter with tip coiled right lower quadrant. No free fluid/air. Remaining liver, pancreas, spleen, adrenal glands, kidneys, ureters, and bladder are unremarkable for noncontrast exam. Again minimal aortic calcifications without AAA. Osseous structures intact again with with minimal degenerative changes throughout spine. Impression: 1. New abdominal percutaneous catheter as detailed. 2. Continued negative renal calculus or evidence for obstructive uropathy. 3. Small nonspecific left effusion less than before. 4. Again chronic findings including nonspecific bilateral perinephric stranding, arteriosclerotic disease, and degenerative spondylosis.
[2023-08-30 15:52] LABS: ANION GAP 15.5 MEQ/L (5-15); Calcium 8.7 mg/dL (8.4-10.2); Creatinine 1 5.54 mg/dL (0.66-1.25); EST GLOMERULAR FILTRATION RATE 11.5 ML/MIN; Potassium 3.6 mmol/L (3.5-5.1)
[2023-08-30 16:01] VITALS: O2SAT 91
--- NOTE | 2023-08-30 16:27 | ERPHSYRPT ---
- History of Present Illness Time Seen by Provider: 08/30/23 12:57 Source: patient Exam Limitations: no limitations Patient Subjective Stated Complaint: pt here for vomiting and not feeling well for 6 days now, he is in reanl failure and had a peritoneal cath placed on mon. Triage Nursing Assessment: pt alert, walked in, resp easy, skin w/d/p. has peritoneal cath to abd with dressing in place, has dried blood on dressing, insertion site with no redness or drainage at this time , moves all ext well. abd soft with bs present Physician History: Patient here for left flank pain. States has been going on the past few days. Overall patient states he has been vomiting and not feeling well for up to 6 days. Patient has known renal failure and had a peritoneal catheter placed last week. No chest pain, shortness of breath. States that he has no abdominal pain. States that the incisions have not been draining. No systemic signs of illness or infection. No fever, chills. Patient states he has been urinating as normal despite his kidney failure. Patient states that he did call Dr. Aburto's office who performed the surgery. States that he does have follow-up next week. The patient has no signs of altered mental status, nuchal rigidity, signs of meningitis. The patient is up-to-date on all vaccinations. Patient has been seen previously in this emergency department for left flank pain. I did review all these records. Is a history of perinephric stranding, idiopathic. On his last CT scan I do not see a kidney stone. Allergies/Adverse Reactions: No Known Drug Allergies Allergy (Verified 08/30/23 12:43) Home Medications: Atorvastatin Calcium 40 mg PO DAILY 03/18/23 [History] Loratadine 10 mg [Claritin 10 mg] 10 mg PO DAILY 03/18/23 [History] Metoprolol Tartrate 50 mg [Lopressor 50 MG] 100 mg PO BID 03/18/23 [History] glipiZIDE [Glipizide] 5 mg PO DAILY 03/18/23 [History] Amlodipine Besylate 10 mg PO DAILY 07/20/23 [History] Cyclobenzaprine HCl 5 mg PO BID 07/20/23 [History] Pregabalin [Lyrica 75 mg Cap] 75 mg PO BID 07/20/23 [History] Sodium Bicarbonate 650 mg PO BID 07/20/23 [History] lisinopriL [Zestril] 1 tab PO DAILY 07/20/23 [History] Hx Tetanus, Diphtheria Vaccination/Date Given: Yes Hx Influenza Vaccination/Date Given: No Hx Pneumococcal Vaccination/Date Given: No Immunizations Up to Date: Yes Travel Risk - International Travel Have you traveled outside of the country in past 3 weeks: No - Emerging Infectious Disease Are you exhibiting symptoms associated with any current EIDs: Yes Symptoms: Vomitting - Past Medical History Pertinent Past Medical History: Yes Neurological History: No Pertinent History ENT History: No Pertinent History Cardiac History: No Pertinent History Respiratory History: No Pertinent History Endocrine Medical History: Diabetes Type II Musculoskeletal History: Fractures GI Medical History: Crohns Disease History: Renal Disease Psycho-Social History: No Pertinent History Male Reproductive Disorders: No Pertinent History - Past Surgical History Past Surgical History: Yes Neuro Surgical History: No Pertinent History Cardiac: No Pertinent History Respiratory: No Pertinent History Gastrointestinal: Appendectomy, Cholecystectomy, Colon Resection, Hernia Repair Genitourinary: No Pertinent History Musculoskeletal: Orthopedic Surgery Male Surgical History: No Pertinent History Other Surgical History: left rotater cuff, right leg - Social History Smoking Status: Never smoker Exposure to second hand smoke: No Drug Use: none Patient Lives Alone: No - Social Determinants of Health Will the patient participate in the screening: Yes Do you worry about a steady place to live?: No Do you have any problems with any of the following?: No known problems In the past 12 months,have you had to go without utilities?: No Transportation Issues: No Has anyone in your support network made you feel unsafe?: No Have you or anyone in your house had to go without enough: No - Nursing Vital Signs Nursing Vital Signs: Initial Vital Signs Temperature 97.4 F 08/30/23 12:54 Pulse Rate 77 08/30/23 12:54 Respiratory Rate 16 08/30/23 12:54 Blood Pressure 169/93 08/30/23 12:54 O2 Sat by Pulse Oximetry 98 08/30/23 12:54 Pain Scale Pain Intensity [Back] 8 Pain Intensity 3 - Physical Exam SpO2 Interpretation: normal SpO2: 91 Comments: 08/30/23 18:23 Review of Systems Constitutional: Negative for fever. HENT: Negative for congestion. Respiratory: Negative for shortness of breath. Cardiovascular: Negative for chest pain. Gastrointestinal: Negative for abdominal pain. Genitourinary: Negative for dysuria. Musculoskeletal: Negative for back pain. Skin: Negative for rash. Neurological: Negative for headaches. Psychiatric/Behavioral: Negative for behavioral problems. All other systems reviewed and are negative. Physical Exam Vitals signs and nursing note reviewed. Constitutional: Appearance: Patient is well-developed. HENT: Head: Normocephalic and atraumatic. Eyes: Conjunctiva/sclera: Conjunctivae normal. Neck: Musculoskeletal: Normal range of motion. Trachea: No tracheal deviation. Cardiovascular: Rate and Rhythm: Normal rate. Pulmonary: Effort: Pulmonary effort is normal. No respiratory distress. Abdominal: Palpations: Abdomen is soft. Incisions well-healing, no drainage, peritoneal catheter in place. No signs of infection, or other wound infection, no obvious developing abscesses or other abdominal issues. No rebound or guarding. Musculoskeletal: General: No deformity. Left CVA tenderness to palpation, no overlying skin changes, no signs of vesicles, infection. Spine is nontender, no step-offs or deformities. Skin: General: Skin is warm and dry. Neurological/ Psychiatric: Mental Status: Mental status, behavior, interaction with environment is appropriate for patient's age and condition - Course Nursing assessment & vital signs reviewed: Yes EKG Interpreted by Me: Sinus Rhythm (Sinus rhythm, rate of 74, VA interval 149, QRS 99, QTc is 480, no STEMI, no other obvious ST changes) Ordered Tests: Active Orders 24 hr Category Date Time Status EKG-ER Only STAT Care 08/30/23 12:58 Completed IV Insertion STAT Care 08/30/23 12:58 Completed ABDOMEN AND PELVIS W/0 CONTRAS [CT] Stat Exams 08/30/23 13:03 Completed AMYLASE Stat Lab 08/30/23 13:30 Completed BMP Stat Lab 08/30/23 15:30 Completed CBC W DIFF Stat Lab 08/30/23 13:30 Completed CMP Stat Lab 08/30/23 13:30 Completed LIPASE Stat Lab 08/30/23 13:30 Completed TROPONIN Q4H Lab 08/30/23 13:30 Completed TROPONIN Q4H Lab 08/30/23 15:30 Completed UA W/RFX UR CULTURE Stat Lab 08/30/23 14:00 Completed Medication Summary Discontinued Medications Generic Name Dose Route Start Last Admin Trade Name Freq PRN Reason Stop Dose Admin Acetaminophen 1,000 mg 08/30/23 13:03 08/30/23 14:04 Acetaminophen 500 Mg Tablet PO 08/30/23 13:04 1,000 mg STAT STA Administration Acetaminophen Confirm 08/30/23 13:57 Acetaminophen 500 Mg Tablet Administered 08/30/23 13:58 Dose 1,000 mg .ROUTE .STK-MED ONE Diphenhydramine HCl 25 mg 08/30/23 12:58 08/30/23 14:01 Diphenhydramine Hcl 50 Mg/Ml Vial IV 08/30/23 12:59 25 mg STAT ONE Administration Diphenhydramine HCl Confirm 08/30/23 13:57 Diphenhydramine Hcl 50 Mg/Ml Vial Administered 08/30/23 13:58 Dose 50 mg .ROUTE .STK-MED ONE Droperidol 1.25 mg 08/30/23 12:58 08/30/23 14:02 Droperidol 5 Mg/2 Ml Vial IV 08/30/23 12:59 1.25 mg STAT ONE Administration Droperidol Confirm 08/30/23 13:57 Droperidol 5 Mg/2 Ml Vial Administered 08/30/23 13:58 Dose 5 mg .ROUTE .STK-MED ONE Sodium Chloride 1,000 mls @ 999 mls/hr 08/30/23 12:58 08/30/23 15:14 Sodium Chloride 0.9% 1000 Ml IV 08/30/23 13:58 Infused .Q1H1M STA Infusion Sodium Chloride Confirm 08/30/23 13:57 Sodium Chloride 0.9% 1000 Ml Administered 08/30/23 13:58 Dose 1,000 mls @ ud .ROUTE .STK-MED ONE Lidocaine 1 patch 08/30/23 13:04 08/30/23 14:05 Lidocaine Hcl 1 Patch Patch TOP 08/30/23 13:05 1 patch ONCE ONE Administration Ondansetron HCl 4 mg 08/30/23 12:58 08/30/23 13:59 Ondansetron Hcl 4 Mg/2 Ml Vial IV 08/30/23 12:59 4 mg STAT ONE Administration Ondansetron HCl Confirm 08/30/23 13:57 Ondansetron Hcl 4 Mg/2 Ml Vial Administered 08/30/23 13:58 Dose 4 mg .ROUTE .STK-MED ONE Lab/Rad Data: Laboratory Result Diagrams 08/30/23 13:30 08/30/23 15:30 Laboratory Results 08/30/23 08/30/23 08/30/23 Range/Units 15:30 15:30 14:00 WBC (4.23-9.07) x10^3/uL RBC (4.63-6.08) x10^6/uL Hgb (13.7-17.5) g/dL Hct (40.1-51.0) % MCV (79.0-92.2) fL MCH (25.7-32.2) pg MCHC (32.3-36.5) g/dL RDW (11.6-14.4) % Plt Count (163-337) x10^3/uL MPV (9.4-12.4) fL Gran % (34.0-67.9) % Immature Gran % (Auto) (0.001-0.429) % Nucleat RBC Rel Count (0.00-0.2) % Eos # (Auto) (0.04-0.54) x10^3/uL Immature Gran # (Auto) (0.001-0.031) x10^3u/L Absolute Lymphs (auto) (1.32-3.57) x10^3/uL Absolute Monos (auto) (0.30-0.82) x10^3/uL Absolute Nucleated RBC (0.00-0.012) x10^3u/L Lymphocytes % (21.8-53.1) % Monocytes % (5.3-12.2) % Eosinophils % (0.8-7.0) % Basophils % (0.2-1.2) % Absolute Granulocytes (1.78-5.38) x10^3/uL Basophils # (0.01-0.08) x10^3/uL Sodium 137 (135-145) mmol/L Potassium 3.6 (3.5-5.1) mmol/L Chloride 102 (98-107) mmol/L Carbon Dioxide 23 (22-30) mmol/L Anion Gap 15.5 H (5-15) MEQ/L BUN 53 H (9-20) mg/dL Creatinine 5.54 H (0.66-1.25) mg/dL Estimated GFR 11.5 ML/MIN Glucose 163 H (74-106) mg/dL Calcium 8.7 (8.4-10.2) mg/dL Total Bilirubin (0.2-1.3) mg/dL AST (17-59) U/L ALT (0-50) U/L Alkaline Phosphatase (38-126) U/L Troponin I < 0.012 (0.000-0.033) ng/mL Serum Total Protein (6.3-8.2) g/dL Albumin (3.5-5.0) g/dL Amylase (30-110) U/L Lipase (23-300) U/L Urine Color Yellow (Yellow) Urine Appearance Clear (Clear) Urine pH 6.5 (4.6-8.0) Ur Specific [place] 1.015 (1.005-1.030) Urine Protein >=1000 A (Negative) Urine Glucose (UA) 500 A (Negative) mg/dL Urine Ketones Negative (Negative) Urine Blood Small A (Negative) Urine Nitrite Negative (Negative) Urine Bilirubin Negative (Negative) Urine Urobilinogen 0.2 (0.2) mg/dL Ur Leukocyte Esterase Negative (Negative) U Hyaline Cast (Auto) 3-5 A (0-2) /LPF Urine Microscopic RBC 6-10 A (0-5) /HPF Urine Microscopic WBC 0-2 (0-5) /HPF Ur Epithelial Cells None Seen (None Seen) /HPF Urine Bacteria None Seen (None Seen) /HPF Urine Culture Reflexed NO (NO) Influenza Type A Ag (NEGATIVE) Influenza Type B Ag (NEGATIVE) RSV (PCR) (NEGATIVE) SARS-CoV-2 (PCR) (NEGATIVE) 08/30/23 08/30/23 08/30/23 Range/Units 13:30 13:30 13:30 WBC (4.23-9.07) x10^3/uL RBC (4.63-6.08) x10^6/uL Hgb (13.7-17.5) g/dL Hct (40.1-51.0) % MCV (79.0-92.2) fL MCH (25.7-32.2) pg MCHC (32.3-36.5) g/dL RDW (11.6-14.4) % Plt Count (163-337) x10^3/uL MPV (9.4-12.4) fL Gran % (34.0-67.9) % Immature Gran % (Auto) (0.001-0.429) % Nucleat RBC Rel Count (0.00-0.2) % Eos # (Auto) (0.04-0.54) x10^3/uL Immature Gran # (Auto) (0.001-0.031) x10^3u/L Absolute Lymphs (auto) (1.32-3.57) x10^3/uL Absolute Monos (auto) (0.30-0.82) x10^3/uL Absolute Nucleated RBC (0.00-0.012) x10^3u/L Lymphocytes % (21.8-53.1) % Monocytes % (5.3-12.2) % Eosinophils % (0.8-7.0) % Basophils % (0.2-1.2) % Absolute Granulocytes (1.78-5.38) x10^3/uL Basophils # (0.01-0.08) x10^3/uL Sodium 138 (135-145) mmol/L Potassium 3.7 (3.5-5.1) mmol/L Chloride 100 (98-107) mmol/L Carbon Dioxide 25 (22-30) mmol/L Anion Gap 17.8 H (5-15) MEQ/L BUN 56 H (9-20) mg/dL Creatinine 5.84 H (0.66-1.25) mg/dL Estimated GFR 10.8 ML/MIN Glucose 154 H (74-106) mg/dL Calcium 9.3 (8.4-10.2) mg/dL Total Bilirubin 0.60 (0.2-1.3) mg/dL AST 28 (17-59) U/L ALT 34 (0-50) U/L Alkaline Phosphatase 240 H (38-126) U/L Troponin I < 0.012 (0.000-0.033) ng/mL Serum Total Protein 8.1 (6.3-8.2) g/dL Albumin 4.6 (3.5-5.0) g/dL Amylase 98 (30-110) U/L Lipase 105 (23-300) U/L Urine Color (Yellow) Urine Appearance (Clear) Urine pH (4.6-8.0) Ur Specific [place] (1.005-1.030) Urine Protein (Negative) Urine Glucose (UA) (Negative) mg/dL Urine Ketones (Negative) Urine Blood (Negative) Urine Nitrite (Negative) Urine Bilirubin (Negative) Urine Urobilinogen (0.2) mg/dL Ur Leukocyte Esterase (Negative) U Hyaline Cast (Auto) (0-2) /LPF Urine Microscopic RBC (0-5) /HPF Urine Microscopic WBC (0-5) /HPF Ur Epithelial Cells (None Seen) /HPF Urine Bacteria (None Seen) /HPF Urine Culture Reflexed (NO) Influenza Type A Ag NEGATIVE (NEGATIVE) Influenza Type B Ag NEGATIVE (NEGATIVE) RSV (PCR) NEGATIVE (NEGATIVE) SARS-CoV-2 (PCR) NEGATIVE (NEGATIVE) 08/30/23 Range/Units 13:30 WBC 11.7 H (4.23-9.07) x10^3/uL RBC 4.59 L (4.63-6.08) x10^6/uL Hgb 13.3 L (13.7-17.5) g/dL Hct 38.1 L (40.1-51.0) % MCV 83.0 (79.0-92.2) fL MCH 29.0 (25.7-32.2) pg MCHC 34.9 (32.3-36.5) g/dL RDW 12.2 (11.6-14.4) % Plt Count 308 (163-337) x10^3/uL MPV 10.4 (9.4-12.4) fL Gran % 71.6 H (34.0-67.9) % Immature Gran % (Auto) 0.5 H (0.001-0.429) % Nucleat RBC Rel Count 0.0 (0.00-0.2) % Eos # (Auto) 0.54 (0.04-0.54) x10^3/uL Immature Gran # (Auto) 0.06 H (0.001-0.031) x10^3u/L Absolute Lymphs (auto) 1.72 (1.32-3.57) x10^3/uL Absolute Monos (auto) 0.91 H (0.30-0.82) x10^3/uL Absolute Nucleated RBC 0.00 (0.00-0.012) x10^3u/L Lymphocytes % 14.8 L (21.8-53.1) % Monocytes % 7.8 (5.3-12.2) % Eosinophils % 4.6 (0.8-7.0) % Basophils % 0.7 (0.2-1.2) % Absolute Granulocytes 8.34 H (1.78-5.38) x10^3/uL Basophils # 0.08 (0.01-0.08) x10^3/uL Sodium (135-145) mmol/L Potassium (3.5-5.1) mmol/L Chloride (98-107) mmol/L Carbon Dioxide (22-30) mmol/L Anion Gap (5-15) MEQ/L BUN (9-20) mg/dL Creatinine (0.66-1.25) mg/dL Estimated GFR ML/MIN Glucose (74-106) mg/dL Calcium (8.4-10.2) mg/dL Total Bilirubin (0.2-1.3) mg/dL AST (17-59) U/L ALT (0-50) U/L Alkaline Phosphatase (38-126) U/L Troponin I (0.000-0.033) ng/mL Serum Total Protein (6.3-8.2) g/dL Albumin (3.5-5.0) g/dL Amylase (30-110) U/L Lipase (23-300) U/L Urine Color (Yellow) Urine Appearance (Clear) Urine pH (4.6-8.0) Ur Specific [place] (1.005-1.030) Urine Protein (Negative) Urine Glucose (UA) (Negative) mg/dL Urine Ketones (Negative) Urine Blood (Negative) Urine Nitrite (Negative) Urine Bilirubin (Negative) Urine Urobilinogen (0.2) mg/dL Ur Leukocyte Esterase (Negative) U Hyaline Cast (Auto) (0-2) /LPF Urine Microscopic RBC (0-5) /HPF Urine Microscopic WBC (0-5) /HPF Ur Epithelial Cells (None Seen) /HPF Urine Bacteria (None Seen) /HPF Urine Culture Reflexed (NO) Influenza Type A Ag (NEGATIVE) Influenza Type B Ag (NEGATIVE) RSV (PCR) (NEGATIVE) SARS-CoV-2 (PCR) (NEGATIVE) - Progress Progress: improved Progress Note: 08/30/23 18:26 Differential diagnosis includes kidney stone, compression fracture, infection, UTI, triple AAA, postop infection, NSTEMI, ACS, STEMI, other cardiac issue. - CT scan abdomen pelvis and chest x-ray - We'll obtain basic labs, fluids, EKG, troponin - EKG shows no ST changes - my read - O2 saturations consistently greater than 95%. - CXR performed as an outpatient today at 1309, this was read as a nonacute chest by Dr. Jim Hart. I did not personally review the images however I was given the image report by [email or web address] tech. Reevaluation: Patient feels improved with fluids, pain medication, nausea medication here. Patient's COVID swab, flu swab, RSV swab returned negative. No signs of a UTI today. Patient did have a slightly elevated white blood cell count. However no other signs of infection. No tachycardia, fever here. Patient did have an ion gap, elevated glucose, elevated BUN, elevated creatinine. We did give him 1 L of fluid and repeat these. They did improve except for the glucose which states slightly high. Otherwise creatinine and BUN improved. Therefore most likely secondary to some of patient's dehydration. CT scan returned without any kidney stone, or other abdominal issue. Patient demonstrates no obvious abscess, peritoneal catheter appears in place, no other signs of postop issue. I did discuss over the phone with patient's primary care provider, Dr. Mahan. He is familiar with the patient and last saw him in March. We went over all the labs and detailed. We discussed admitting the patient versus trying to manage this as an outpatient. Dr. Blas felt that he could see the patient tomorrow morning for seen and could reevaluate, revital sign, perform a repeat abdominal exam on the patient. I do feel that this is reasonable. Patient would rather go home as well after I discussed the risks and benefits of going home versus staying here. No obvious cause for patient's nausea and vomiting outside of perhaps general anesthesia last week. Otherwise no obvious infectious causes. Patient will not be placed on antibiotics today due to this. Plan for close follow-up, abdominal reexam, repeat labs tomorrow morning with Dr. Mahan at [facility]. Patient states he will not have difficulty getting to this appointment. They will return here sooner for any new or changing symptoms. This includes is not limited to fever, intractable nausea and vomiting, increased abdominal pain, increased flank pain. Discussed with Dr.: Other (Dr. Mahan) Counseled pt/family regarding: lab results, diagnosis, need for follow-up, rad results - Departure Departure Disposition: Home Clinical Impression: Back pain, Vomiting, Hyperglycemia, Post-operative complication Condition: Stable Critical Care Time: No Referrals: BERTO TEAGUE [Primary Care Provider] - Follow up/PCP as directed Instructions: Low Back Pain (DC) Additional Instructions: You have a follow up appointment at [address] Mahan to be seen for reevaluation at [facility] [place]. Return here sooner for new or changing symptoms. Prescriptions: Ondansetron ODT 4 MG [Zofran Odt 4 mg] 4 mg PO Q6H PRN PRN #10 tablet PRN Reason: Vomiting
[2023-08-30 16:52] VITALS: BP 145/72; PULSE 82; RESP 16
== END 2023-08-30 16:52 | disposition home or self-care (01) ==
LOC: ED 12:33
DX: M54.9 Dorsalgia, unspecified (principal); R11.2 Nausea with vomiting, unspecified; E11.65 Type 2 diabetes mellitus with hyperglycemia; N99.89 Other postprocedural complications and disorders of genitourinary system; R10.9 Unspecified abdominal pain; Z79.84 Long term (current) use of oral hypoglycemic drugs; Z79.899 Other long term (current) drug therapy
CPT/HCPCS: 0241U; 36415; 74176; 80048; 80053; 81001; 82150; 83690; 84484; 85025; 93005; 96360; 96374; 96375; 99284; J1200; J2405; A9270-GY

== ENCOUNTER 2024-01-15 11:38 | Emergency (ER) | payer BC ==
[2024-01-15 12:59] VITALS: RESP 18; TEMP 97.2
[2024-01-15] MEDS ORDERED: ZOFRAN ODT 4 MG ONE ×3 (13:30→13:33)
[2024-01-15] MEDS: ZOFRAN ODT 4 MG PO ONE (13:31)
[2024-01-15] MEDS ORDERED: NORCO 10-325 MG ONE (13:45)
[2024-01-15] MEDS: NORCO 10-325 MG PO ONE (13:46)
[2024-01-15 13:48] LABS: Absolute Neutrophil Ct (ANC) 13.88 x10^3/uL (1.78-5.38); BASOPHIL % 0.7 % (0.2-1.2); Basophil (Absolute #) 0.12 x10^3/uL (0.01-0.08); Eosinophil % 0.9 % (0.8-7.0); Eosinophil (Absolute #) 0.15 x10^3/uL (0.04-0.54); Hematocrit 40.6 % (40.1-51.0); Hemoglobin 14.2 g/dL (13.7-17.5); IMMATURE GRAN # 0.13 x10^3u/L (0.001-0.031); IMMATURE GRAN % 0.8 % (0.001-0.429); Lymphocyte (Absolute #) 1.66 x10^3/uL (1.32-3.57); Lymphocytes % 9.7 % (21.8-53.1); Mean Cell Volume 85.7 fL (79.0-92.2); Mean Platelet Volume 9.5 fL (9.4-12.4); Monocyte (Absolute #) 1.12 x10^3/uL (0.30-0.82); Monocytes % 6.6 % (5.3-12.2); Neutrophil % 81.3 % (34.0-67.9); Platelet Count 477 x10^3/uL (163-337); Red Blood Count 4.74 x10^6/uL (4.63-6.08); Red Cell Distribution Width 13.2 % (11.6-14.4); White Blood Count 17.1 x10^3/uL (4.23-9.07)
[2024-01-15 14:04] LABS: ALBUMIN 3.6 g/dL (3.5-5.0); ANION GAP 14.5 MEQ/L (5-15); BILIRUBIN,TOTAL 0.4 mg/dL (0.2-1.3); Calcium 8.5 mg/dL (8.4-10.2); Creatinine 1 7.34 mg/dL (0.66-1.25); EST GLOMERULAR FILTRATION RATE 8.2 ML/MIN; Total Protein 6.9 g/dL (6.3-8.2)
[2024-01-15] MEDS ORDERED: Klor Con ONE (14:30)
[2024-01-15] MEDS: Klor Con PO ONE (14:33)
--- NOTE | 2024-01-15 15:00 | XRAY ---
Indication: Right flank pain. Multiple contiguous axial images obtained through the abdomen and pelvis without contrast using renal stone protocol. Comparison: August 30, 2023 Lung bases now clear. Heart not enlarged. Again no renal calculus or evidence for obstructive uropathy in either system. Noncontrasted stomach and bowel loops appear nonobstructed. New moderate subdiaphragmatic free air, right greater than left. Also new small perihepatic and perisplenic free fluid. Left abdominal peritoneal dialysis catheter again coiled in the pelvis. Stable small right renal cysts and cholecystectomy clips. Urinary bladder is moderately distended. Remaining liver, pancreas, spleen, adrenal glands, kidneys, ureters, and bladder are unremarkable for noncontrast exam. Again minimal aortic calcifications without AAA. Osseous structures intact again with minimal degenerative changes throughout spine. Impression: 1. Continued negative for renal calculus or evidence for obstructive uropathy. 2. New bilateral subdiaphragmatic free air and free fluid as detailed. No clear etiology. Findings worrisome for perforated GI system. 3. New distended urinary bladder. Rule out outlet obstruction versus neurogenic bladder. 4. Again chronic findings including arteriosclerotic disease, right renal cysts, degenerative spondylosis, and peritoneal dialysis catheter in situ. Comment: Telephone report was given to ordering clinician, Dr. Alvarado at 1450 hrs. on January 15, 2024.
[2024-01-15] MEDS ORDERED: PIPERACILLIN/TAZOBACTAM IV ONE (15:08)
[2024-01-15] MEDS ORDERED: Sodium Chloride 100ML MINI-BAG PLUS 100 ML IV ONE (15:08)
[2024-01-15] MEDS: PIPERACILLIN/TAZOBACTAM 4.5 GM in Sodium Chloride 100ML MINI-BAG PLUS 100 ML IV ONE (15:10)
--- NOTE | 2024-01-15 15:19 | ERPHSYRPT ---
- History of Present Illness Time Seen by Provider: 01/15/24 12:57 Source: patient Exam Limitations: no limitations Patient Subjective Stated Complaint: pt here for flank pain for a couple days now, vomiitng about 2-3 times a day, no fever, pt does peritoneal dialysis at home Triage Nursing Assessment: pt alert, arrive per wc, resp easy, skin w/d/p. has pertoneal dialysis site intact no redness or drainage noted.no edema noted Physician History: Patient is here with 3 to 4 days of abdominal pain that radiates to the flank. Patient does have a history of peritoneal dialysis. States this is secondary to hypertension and diabetes. He states that his pain has been going on for 3 to 4 days as above. Progressed to nausea and vomiting. States he last ate yesterday. Patient states pain is more midepigastric and more into his right and left flank. No overlying skin changes. He otherwise has no chest pain, sh ortness of breath. He does dialysis every night. He states that he has received most of his care at [facility]. Allergies/Adverse Reactions: No Known Drug Allergies Allergy (Verified 01/15/24 12:58) Home Medications: Atorvastatin Calcium 40 mg PO DAILY 03/18/23 [History] Loratadine 10 mg [Claritin 10 mg] 10 mg PO DAILY 03/18/23 [History] Metoprolol Tartrate 50 mg [Lopressor 50 MG] 100 mg PO BID 03/18/23 [History] glipiZIDE [Glipizide] 5 mg PO DAILY 03/18/23 [History] Amlodipine Besylate 10 mg PO DAILY 07/20/23 [History] Cyclobenzaprine HCl 5 mg PO BID 07/20/23 [History] Pregabalin [Lyrica 75 mg Cap] 75 mg PO BID 07/20/23 [History] Sodium Bicarbonate 650 mg PO BID 07/20/23 [History] lisinopriL [Zestril] 1 tab PO DAILY 07/20/23 [History] Hx Tetanus, Diphtheria Vaccination/Date Given: Yes Hx Influenza Vaccination/Date Given: Yes Hx Pneumococcal Vaccination/Date Given: No Immunizations Up to Date: Yes Travel Risk - International Travel Have you traveled outside of the country in past 3 weeks: No - Emerging Infectious Disease Are you exhibiting symptoms associated with any current EIDs: No Symptoms: Vomitting - Past Medical History Pertinent Past Medical History: Yes Neurological History: No Pertinent History ENT History: No Pertinent History Cardiac History: No Pertinent History Respiratory History: No Pertinent History Endocrine Medical History: Diabetes Type II Musculoskeletal History: Fractures GI Medical History: Crohns Disease History: Renal Disease Psycho-Social History: No Pertinent History Male Reproductive Disorders: No Pertinent History Other Medical History: dialysis since july at home - Past Surgical History Past Surgical History: Yes Neuro Surgical History: No Pertinent History Cardiac: No Pertinent History Respiratory: No Pertinent History Gastrointestinal: Appendectomy, Cholecystectomy, Colon Resection, Hernia Repair Genitourinary: No Pertinent History Musculoskeletal: Orthopedic Surgery Male Surgical History: No Pertinent History Other Surgical History: left rotater cuff, right leg - Social History Smoking Status: Never smoker Exposure to second hand smoke: No Drug Use: none Patient Lives Alone: No - Social Determinants of Health Will the patient participate in the screening: Yes Do you worry about a steady place to live?: No Do you have any problems with any of the following?: No known problems In the past 12 months,have you had to go without utilities?: No Transportation Issues: No Has anyone in your support network made you feel unsafe?: No Have you or anyone in your house had to go without enough: No - Nursing Vital Signs Nursing Vital Signs: Initial Vital Signs Temperature 97.2 F 01/15/24 12:59 Pulse Rate 94 H 01/15/24 12:59 Respiratory Rate 18 01/15/24 12:59 Blood Pressure 140/96 01/15/24 12:59 O2 Sat by Pulse Oximetry 98 01/15/24 12:59 Pain Scale Pain Intensity [Back] 8 Pain Intensity 8 - Physical Exam SpO2 Interpretation: normal SpO2: 92 Comments: 01/15/24 16:30 Review of Systems Constitutional: Negative for fever. HENT: Negative for congestion. Respiratory: Negative for shortness of breath. Cardiovascular: Negative for chest pain. Gastrointestinal: Abdominal pain, nausea, vomiting Genitourinary: Negative for dysuria. Musculoskeletal: Negative for back pain. Skin: Negative for rash. Neurological: Negative for headaches. Psychiatric/Behavioral: Negative for behavioral problems. All other systems reviewed and are negative. Physical Exam Vitals signs and nursing note reviewed. Constitutional: Appearance: Patient is well-developed. HENT: Head: Normocephalic and atraumatic. Eyes: Conjunctiva/sclera: Conjunctivae normal. Neck: Musculoskeletal: Normal range of motion. Trachea: No tracheal deviation. Cardiovascular: Rate and Rhythm: Normal rate. Pulmonary: Effort: Pulmonary effort is normal. No respiratory distress. Abdominal: Palpations: Midepigastric tenderness. Bilateral CVA tenderness. No overlying skin changes. Peritoneal dialysis catheter in place. No surrounding redness, signs of infection. No rebound or guarding. Musculoskeletal: General: No deformity. Skin: General: Skin is warm and dry. Neurological/ Psychiatric: Mental Status: Mental status, behavior, interaction with environment is appropriate for patient's age and condition - Course Nursing assessment & vital signs reviewed: Yes Ordered Tests: Active Orders 24 hr Category Date Time Status IV Insertion STAT Care 01/15/24 15:06 Active ABDOMEN AND PELVIS W/0 CONTRAS [CT] Stat Exams 01/15/24 13:11 Completed CBC W DIFF Stat Lab 01/15/24 13:40 Completed CMP Stat Lab 01/15/24 13:40 Completed Medication Summary Discontinued Medications Generic Name Dose Route Start Last Admin Trade Name Freq PRN Reason Stop Dose Admin Hydrocodone Bitart/Acetaminophen 1 tablet 01/15/24 13:11 01/15/24 13:46 Hydrocodone/Acetamin 10-325 Mg Tablet PO 01/15/24 13:12 1 tablet ONCE ONE Administration Hydrocodone Bitart/Acetaminophen Confirm 01/15/24 13:45 Hydrocodone/Acetamin 10-325 Mg Tablet Administered 01/15/24 13:46 Dose 1 tablet .ROUTE .STK-MED ONE Hydromorphone HCl 1 mg 01/15/24 16:22 Hydromorphone 1 Mg/1ml Inj IV 01/15/24 16:23 STAT ONE Piperacillin Sod/Tazobactam 100 mls @ 200 mls/hr 01/15/24 15:05 01/15/24 15:10 Sod 4.5 gm/ Sodium Chloride IV 01/15/24 15:34 200 mls/hr STAT ONE Administration Sodium Chloride Confirm 01/15/24 15:08 Sodium Chloride 100ml Mini-Bag Plus Administered 01/15/24 15:09 Dose 100 mls @ ud IV .STK-MED ONE Ondansetron HCl 8 mg 01/15/24 13:11 01/15/24 13:31 Zofran 4 Mg/Udtablet Orally Disintegrating PO 01/15/24 13:12 8 mg STAT ONE Administration Ondansetron HCl Confirm 01/15/24 13:30 Zofran 4 Mg/Udtablet Orally Disintegrating Administered 01/15/24 13:31 Dose 4 mg .ROUTE .STK-MED ONE Ondansetron HCl Confirm 01/15/24 13:32 Zofran 4 Mg/Udtablet Orally Disintegrating Administered 01/15/24 13:33 Dose 4 mg .ROUTE .STK-MED ONE Ondansetron HCl Confirm 01/15/24 13:33 Zofran 4 Mg/Udtablet Orally Disintegrating Administered 01/15/24 13:34 Dose 8 mg .ROUTE .STK-MED ONE Piperacillin Sod/Tazobactam Sod Confirm 01/15/24 15:08 Piperacillin/Tazobactam Sodium 4.5 Gm Vial Administered 01/15/24 15:09 Dose 4.5 gm IV .STK-MED ONE Potassium Chloride 40 meq 01/15/24 14:20 01/15/24 14:33 Potassium Chloride Tab 10 Meq Tab PO 01/15/24 14:21 40 meq STAT ONE Administration Potassium Chloride Confirm 01/15/24 14:30 Potassium Chloride Tab 10 Meq Tab Administered 01/15/24 14:31 Dose 40 meq .ROUTE .STK-MED ONE Lab/Rad Data: Laboratory Result Diagrams 01/15/24 13:40 01/15/24 13:40 Laboratory Results 01/15/24 01/15/24 Range/Units 13:40 13:40 WBC 17.1 H (4.23-9.07) x10^3/uL RBC 4.74 (4.63-6.08) x10^6/uL Hgb 14.2 (13.7-17.5) g/dL Hct 40.6 (40.1-51.0) % MCV 85.7 (79.0-92.2) fL MCH 30.0 (25.7-32.2) pg MCHC 35.0 (32.3-36.5) g/dL RDW 13.2 (11.6-14.4) % Plt Count 477 H (163-337) x10^3/uL MPV 9.5 (9.4-12.4) fL Gran % 81.3 H (34.0-67.9) % Immature Gran % (Auto) 0.8 H (0.001-0.429) % Nucleat RBC Rel Count 0.0 (0.00-0.2) % Eos # (Auto) 0.15 (0.04-0.54) x10^3/uL Immature Gran # (Auto) 0.13 H (0.001-0.031) x10^3u/L Absolute Lymphs (auto) 1.66 (1.32-3.57) x10^3/uL Absolute Monos (auto) 1.12 H (0.30-0.82) x10^3/uL Absolute Nucleated RBC 0.00 (0.00-0.012) x10^3u/L Lymphocytes % 9.7 L (21.8-53.1) % Monocytes % 6.6 (5.3-12.2) % Eosinophils % 0.9 (0.8-7.0) % Basophils % 0.7 (0.2-1.2) % Absolute Granulocytes 13.88 H (1.78-5.38) x10^3/uL Basophils # 0.12 H (0.01-0.08) x10^3/uL Sodium 131 L (135-145) mmol/L Potassium 3.0 L* (3.5-5.1) mmol/L Chloride 93 L (98-107) mmol/L Carbon Dioxide 27 (22-30) mmol/L Anion Gap 14.5 (5-15) MEQ/L BUN 36 H (9-20) mg/dL Creatinine 7.34 H (0.66-1.25) mg/dL Estimated GFR 8.2 ML/MIN Glucose 209 H (74-106) mg/dL Calcium 8.5 (8.4-10.2) mg/dL Total Bilirubin 0.40 (0.2-1.3) mg/dL AST 25 (17-59) U/L ALT 27 (0-50) U/L Alkaline Phosphatase 167 H (38-126) U/L Serum Total Protein 6.9 (6.3-8.2) g/dL Albumin 3.6 (3.5-5.0) g/dL - Progress Progress: improved Progress Note: 01/15/24 15:[address] Leslie Benton regarding the free air in the abdomen after receiving a call from Dr. Jim Hart. She recommended to transfer the patient to [facility]. 01/15/24 16:31 Differential diagnosis includes kidney stone, compression fracture, infection, UTI, triple AAA - basic labs including: CBC, lipase, CMP - insert IV for symptom management - consider imaging: CT ab/pelvis or U/S Reevaluation Patient feels improved with medication. Labs demonstrate a white blood cell count of 17,000. Potassium was 3.0. This was replaced. CT scan shows free air, possible from a GI perforation. Given this patient was started on Zosyn. We did immediately call general surgery after receiving the call about free air from Dr. Hart. We spoke with Dr. Leslie Benton. She recommended transfer to [facility]. We did discussed over the phone with on-call physician, Dr. Lennon, hospitalist at [facility]. He did accept patient for transfer. General surgeon was already made aware of the case by Dr. Benton, who was her partner. Patient is hemodynamically stable. We did start Zosyn and give IV pain medication at this point in time. Potassium replaced as above. Plan for continued close monitoring, transfer to [facility] for continued close care, definitive care by general surgery. Discussed with Dr.: Other (Dr. Leslie Benton general surgery, Dr. Lennon, hospitalist [facility]) Will see patient in: hospital (full admit) Counseled pt/family regarding: lab results, diagnosis, need for follow-up, rad results - Departure Departure Disposition: Transfer Clinical Impression: Intra-abdominal free air of unknown etiology, Leukocytosis, Abdominal infection Condition: Stable Critical Care Time: No Referrals: BERTO TEAGUE [Primary Care Provider] - Follow up/PCP as directed
[2024-01-15] MEDS ORDERED: Hydromorphone 1 mg/ml Injection ONE (16:50)
[2024-01-15] MEDS: Hydromorphone 1 mg/ml Injection IV ONE (16:52)
[2024-01-15 18:22] VITALS: BP 141/90; PULSE 78; O2SAT 95
== END 2024-01-15 18:10 | disposition short-term general hospital (02) ==
LOC: ED 11:38
DX: R93.5 Abnormal findings on diagnostic imaging of other abdominal regions, including retroperitoneum (principal); D72.829 Elevated white blood cell count, unspecified; B99.9 Unspecified infectious disease; K63.1 Perforation of intestine (nontraumatic); R10.9 Unspecified abdominal pain; R11.2 Nausea with vomiting, unspecified; I12.0 Hypertensive chronic kidney disease with stage 5 chronic kidney disease or end stage renal disease; E11.22 Type 2 diabetes mellitus with diabetic chronic kidney disease; N18.6 End stage renal disease; Z99.2 Dependence on renal dialysis; Z79.84 Long term (current) use of oral hypoglycemic drugs; Z79.899 Other long term (current) drug therapy
CPT/HCPCS: 36415; 74176; 80053; 85025; 96374; 96375; 99285; J1171; J2543; Q0162; A9270-GY